=== PATIENT | male | born 1955 | race Caucasian/White ===

== ENCOUNTER → 2016-05-06 | Outpatient (CLI) | payer OTHER, MEDICAID | LOC: FCPNEURO 20:00 | PROVIDERS: ATTEND Psychiatry & Neurology Sleep Medicine | DX: G47.31 Primary central sleep apnea (principal); G47.33 Obstructive sleep apnea (adult) (pediatric) ==

== ENCOUNTER 2017-02-03 15:32 | Inpatient (IN) | payer OTHER, MEDICAID ==
[2017-02-03] MEDS ORDERED: OLANZapine DISINTEGR 5 MG TAB PO ONE ×2 (15:50→22:51)
--- NOTE | 2017-02-03 15:53 | EDPHY ---
H & P Source: Patient Exam Limitations: Clinical condition - Medical/Surgical History Other PMH: Psych - Social History Smoking Status: Former smoker Time Seen by Provider: 02/03/17 15:51 HPI/ROS: HPI: This is a 61-year-old male presents with Chief Complaint: M1 hold Location: psych Complaint: M1 hold Duration: Today Signs and Symptoms: Timing: Severity: Context: Patient is brought in by [facility] Police on M1 hold for the report of his suicidal person who voiced that he wanted to jump off a building in order to cause self-harm and end his life. While at the mental health public relations account supervisor he became agitated and very delusional and left the building. He was transported to this emergency room in handcuffs. During the interview, patient asked if we would not interrupt him during his thought process or while he was speaking. He relates to me that over the last 4 days he has been very manic, having obsessive-compulsive thoughts as well as being unable to calm his mind. He reports that he did not want to jump off the building to harm himself but said that ordered to "get some action." His dosage of lithium has recently been increased from 600-900 mg within the last 3 days. He reports a history of bipolar disorder, anxiety, obsessive-compulsive disorder and posttraumatic stress disorder. Modifying Factors: Comment: ROS: see HPI Constitutional: No fever, no chills, no weight loss Eyes: No blurred vision Respiratory: No shortness of breath, no cough Cardiovascular: No chest pain Gastrointestinal: No nausea, no vomiting, no diarrhea Genitourinary: No dysuria Extremities: No myalgias Neurologic: No weakness, no numbness Skin: No rashes Hematologic: No bruising, no bleeding MEDICAL/SURGICAL/SOCIAL HISTORY: Medical history: CVA in 1998 Surgical history: Denies Social history: Unemployed CONSTITUTIONAL: Adult tidy well-spoken white male, awake and alert, no obvious distress HEENT: Atraumatic and normocephalic, PERRL, EOMI. Tympanic membranes clear. Oropharynx clear, no exudate and moist pink mucosa. Airway patent. No lymphadenopathy. No meningismus. Cardiovascular: Normal S1/S2, regular rate, regular rhythm, without murmur rub or gallop. PULMONARY/CHEST: Symmetrical and nontender. Clear to auscultation bilaterally. Good air movement. No accessory muscle usage. ABDOMEN: Soft, nondistended, nontender, no rebound, no guarding, no peritoneal signs, no masses or organomegaly. No CVAT. EXTREMITIES: 2/2 pulses, no deformities, no clubbing, no cyanosis or edema. NEUROLOGICAL: no focal neuro deficits. GCS 15. SKIN: Warm and dry, no erythema. no rash. Good capillary refill. PSYCH: good eye contact, no flight of ideas, organized thought process, good insight and judgment, no auditory and visual command hallucinations, no suicidal ideation with a plan, no homicidal ideation, no paranoia (Gavin,Terra) Constitutional: Initial Vital Signs Temperature (C) 36.8 C 02/03/17 16:19 Heart Rate 90 02/03/17 16:19 Respiratory Rate 18 02/03/17 16:19 Blood Pressure 130/100 H 02/03/17 16:19 O2 Sat (%) 90 L 02/03/17 16:19 O2 Delivery Mode Room Air Allergies/Adverse Reactions: fluphenazine enanthate [From Prolixin] Allergy (Verified 04/02/14 15:18) fluphenazine HCl [From Prolixin] Allergy (Verified 04/02/14 15:18) haloperidol [From Haldol] Allergy (Verified 04/02/14 15:18) haloperidol lactate [From Haldol] Allergy (Verified 04/02/14 15:18) "all pain killers" Allergy (Uncoded 04/02/14 15:18) "don't do well on me" Home Medications: Medication Instructions Recorded ARIPiprazole [Abilify 5 mg (*)] 2.5 mg PO DAILY 02/04/17 Anastrozole [Arimidex 1 mg (*)] 1 mg PO Q7D 02/04/17 Aspirin [Aspirin 81mg (*)] 81 mg PO DAILY 02/04/17 LORazepam [Ativan (*)] 1 mg PO HS 02/04/17 Levothyroxine [Synthroid 125 mcg 125 mcg PO DAILY06 02/04/17 (*)] Lisinopril [Zestril 10 mg (*)] 10 mg PO DAILY 02/04/17 Findlay Carbonate [Findlay 900 mg PO HS 02/04/17 Carbonate Cap 300 mg (*)] Propranolol HCl [Inderal 20mg (*)] 20 mg PO DAILY 02/04/17 Thiothixene 4 mg PO HS 02/04/17 Medical Decision Making ED Course/Re-evaluation: Labs, UDS ordered 1600: Came on M1 hold. Originally ordered Zyprexa but patient states that he does better with Ativan. Patient is calm and cooperative at this time. UDS positive for marijuana and benzodiazepines. 1640: Reviewed labs and medically clear for mental health evaluation 1700: End of Shift. Signed over to Dr. Oseguera pending mental health evaluation. (Roma Alonso) The patient been evaluated by mental health and they are looking for placement. Patient has had 2 mg of Ativan still somewhat agitated. He is given a 3rd dose of Ativan before moving on to other medications 10:50 p.m. patient continues to be agitated and is escalating despite the 3 mg of Ativan. He is given Zyprexa orally (Tani Oseguera) I took over care of this patient at 7:00 a.m.. This patient is on an M1 hold for suicidal ideation. His plan was to jump off of a bridge. He has received Ativan and Zyprexa here in the emergency department. He is to be admitted to [address] [place] [address]. 11:20 a.m., patient transferred to [address] [place] [address] in stable condition. I filled out the appropriate transfer paperwork. His remaining emergency department course under my care has been uneventful. (Rubio Zamora) Differential Diagnosis: Altered mental status including but not limited to hypoglycemia, infectious process, electrolyte abnormality, head injury and intoxicants. (Roma Alonso) Care Turn Over: Care to Dr. Badillo at 11:00 p.m. (Tani Oseguera) - Data Points Laboratory Results: Laboratory Results 02/03/17 16:00 02/03/17 16:00 Medications Given: Amlodipine Besylate (Norvasc) 2.5 mg PO DAILY JUAN Stop: 08/04/17 08:59 Last Admin: 02/05/17 08:01 Dose: 2.5 mg Asenapine (Saphris) 10 mg SL BID JUAN Stop: 08/04/17 09:14 Last Admin: 02/05/17 11:13 Dose: 10 mg Aspirin (Aspirin) 81 mg PO DAILY JUAN Stop: 08/04/17 08:59 Last Admin: 02/05/17 08:02 Dose: 81 mg Levothyroxine Sodium (Synthroid) 125 mcg PO DAILY@1000 JUAN Stop: 08/04/17 09:59 Last Admin: 02/05/17 11:14 Dose: 125 mcg Findlay Carbonate (Findlay Carbonate) 900 mg PO HS JUAN Stop: 08/03/17 20:59 Last Admin: 02/04/17 20:32 Dose: 900 mg Melatonin (Melatonin) 3 - 6 mg PO HS PRN PRN Reason: Sleep/Insomnia Stop: 08/03/17 21:38 Last Admin: 02/04/17 22:00 Dose: 6 mg Olanzapine (Zyprexa Zydis) 10 mg PO Q6 PRN PRN Reason: Agitation Stop: 08/04/17 09:04 Last Admin: 02/05/17 11:14 Dose: 10 mg Discontinued Medications Haloperidol (Haldol) 10 mg PO ONCE ONE Stop: 02/04/17 21:46 Last Admin: 02/04/17 21:57 Dose: Not Given Lorazepam (Ativan) 1 mg PO EDNOW ONE Stop: 02/03/17 16:13 Last Admin: 02/03/17 16:18 Dose: 1 mg Lorazepam (Ativan) 1 mg PO EDNOW ONE Stop: 02/03/17 19:48 Last Admin: 02/03/17 20:11 Dose: 1 mg Lorazepam (Ativan) 1 mg PO EDNOW ONE Stop: 02/03/17 20:52 Last Admin: 02/03/17 20:56 Dose: 1 mg Lorazepam (Ativan) 1 mg PO EDNOW ONE Stop: 02/04/17 02:49 Last Admin: 02/04/17 02:50 Dose: 1 mg Lorazepam (Ativan) 1 mg PO EDNOW ONE Stop: 02/04/17 07:34 Last Admin: 02/04/17 07:36 Dose: 1 mg Lorazepam (Ativan) 1 mg PO EDNOW ONE Stop: 02/04/17 10:53 Last Admin: 02/04/17 11:03 Dose: 1 mg Lorazepam (Ativan) 1 - 2 mg PO Q6H PRN PRN Reason: AGITATION Stop: 02/05/17 13:11 Last Admin: 02/05/17 08:01 Dose: 2 mg Nicotine Polacrilex (Nicorette) 2 mg B EDNOW ONE Stop: 02/04/17 02:49 Last Admin: 02/04/17 02:50 Dose: 2 mg Olanzapine (Zyprexa Zydis) 5 mg PO EDNOW ONE Stop: 02/03/17 15:51 Last Admin: 02/03/17 16:18 Dose: Not Given Olanzapine (Zyprexa Zydis) 20 mg PO EDNOW ONE Stop: 02/03/17 22:52 Last Admin: 02/03/17 22:56 Dose: 20 mg Olanzapine (Zyprexa Im Injection) 5 mg IM BID JUAN Stop: 08/03/17 13:14 Last Admin: 02/04/17 15:25 Dose: Not Given Olanzapine (Zyprexa Zydis) 10 mg PO ONCE ONE Stop: 02/04/17 13:49 Last Admin: 02/04/17 13:50 Dose: 10 mg Olanzapine (Zyprexa Zydis) 10 mg PO BID JUAN Stop: 02/05/17 20:59 Last Admin: 02/05/17 08:01 Dose: 10 mg Olanzapine (Olanzapine) 5 mg PO ONCE ONE Stop: 02/04/17 22:01 Last Admin: 02/04/17 22:01 Dose: 5 mg Olanzapine (Olanzapine) 5 mg PO Q4H PRN PRN Reason: AGITATION Stop: 08/03/17 21:57 Last Admin: 02/05/17 01:05 Dose: 5 mg Olanzapine (Zyprexa Zydis) 10 mg PO ONCE ONE Stop: 02/05/17 15:31 Last Admin: 02/05/17 15:21 Dose: 10 mg Departure - Departure Disposition: [facility] IP Clinical Impression: Verbalizes suicidal thoughts Bipolar disorder Qualifiers: Active/Remission status: currently active Current bipolar episode type: manic Current episode severity: severe Psychotic features: without psychotic features Qualified Code(s): F31.13 - Bipolar disorder, current episode manic without psychotic features, severe
[2017-02-03 16:12] LABS: % IMMATURE GRANULYOCYTES 0.4 % (0.0-1.1); ABSOLUTE IMMATURE GRANULOCYTES 0.04 10^3/uL (0.00-0.10); ADD DIFF? NO; ADD MORPH? NO; ADD SCAN? NO; ATYPICAL LYMPHOCYTE FLAG 10 (0-99); FRAGMENT RBC FLAG 0 (0-99); HEMATOCRIT 45.7 % (40.0-51.0); HEMOGLOBIN 15.5 g/dL (13.7-17.5); LEFT SHIFT FLG 0 (0-99); LIPEMIA HEMOLYSIS FLAG 90 (0-99); MEAN CELL HEMOGLOBIN CONCENTR. 33.9 g/dL (32.4-36.7); MEAN CELL VOLUME 88.6 fL (81.5-99.8); PLATELET CLUMPS FLAG 0 (0-99); PLATELET COUNT 181 10^3/uL (150-400); RED BLOOD CELL COUNT 5.16 10^6/uL (4.40-6.38); RED CELL DISTRIBUTION WIDTH 12.8 % (11.5-15.2)
[2017-02-03] MEDS ORDERED: LORazepam 1 MG TAB ONE ×2 (16:12→19:48)
[2017-02-03] MEDS ORDERED: LORazepam 1 MG TAB PO ONE ×3 (16:12→20:51)
[2017-02-03 16:42] LABS: ANION GAP 9 mEq/L (8-16); CALCIUM 11.3 mg/dL (8.5-10.4); CARBON DIOXIDE 20 mEq/l (22-31); CHLORIDE 106 mEq/L (97-110); CREATININE 1.2 mg/dL (0.7-1.3); ETHANOL SERUM < 10 mg/dL (0-10); GLOMERULAR FILTRATION RATE > 60; GLUCOSE 107 mg/dL (70-100); LITHIUM 0.4 mEq/L (0.6-1.2); POTASSIUM 4.2 mEq/L (3.5-5.2); SALICYLATE < 1.0 mg/dL (2.0-20.0); SODIUM 135 mEq/L (134-144)
[2017-02-04] MEDS ORDERED: NICOTINE POLACRILEX 2 MG GUM B ONE ×2 (02:44→02:48)
[2017-02-04] MEDS ORDERED: LORazepam 1 MG TAB ONE (02:45)
[2017-02-04] MEDS ORDERED: LORazepam 1 MG TAB PO ONE ×3 (02:48→10:52)
[2017-02-04] MEDS ORDERED: ACETAMINOPHEN 325 MG TAB PO PRN (12:41)
[2017-02-04] MEDS ORDERED: MAG HYDROX/AL HYDROX/SIMETH 30 ML UDCUP PO PRN (12:41)
[2017-02-04] MEDS ORDERED: MAGNESIUM HYDROXIDE 30 ML UDCUP PO PRN (12:41)
[2017-02-04] MEDS ORDERED: LORazepam 2 MG/ML INJ IM PRN (13:13)
[2017-02-04] MEDS ORDERED: OLANZapine 10 MG/2 ML VIAL IM SCH (13:15)
[2017-02-04] MEDS ORDERED: OLANZapine 10 MG TAB PO SCH (13:15)
[2017-02-04] MEDS ORDERED: OLANZapine 10 MG/2 ML VIAL IM PRN (13:30)
--- NOTE | 2017-02-04 13:45 | SOAPPROG ---
SOAP Progress Note Assessment/Plan: Assessment: See dictated psychiatric admission note Patient was combative with police earlier and menacing to ER staff. On inpatient unit today screaming profanity, threw food, punched wall, and menacing staff with clenched fist. Patient appears gravely disabled from agitated randi, also had suicidal threats in community. Patient on assault awareness and SPI suicide precaution. EMED DAY ONE Olanzapine ODT 10mg SL BID, if refused: Olanzapine 5mg IM BID PRN Lorazepam 1-2mg Q6 PRN agitation, if refused Lorazepam 2mg IM Will also offer [place] 900mg QHS and Synthroid Plan: 02/04/17 13:42 Objective: Vital Signs Temp Pulse Resp BP Pulse Ox 36.8 C 88 18 148/72 H 96 02/04/17 11:22 02/04/17 11:22 02/04/17 11:22 02/04/17 11:22 02/04/17 11:22 See dictated psychiatric admission note - Time Spent With Patient Time Spent With Patient: 35 - Pending Discharge Pending Discharge Within 24 Hours: No Pending Discharge Within 48 Hours: No ICD10 Worksheet Patient Problems: Problems Problem Status Onset Bipolar disorder Acute Verbalizes suicidal thoughts Acute
[2017-02-04] MEDS ORDERED: OLANZapine DISINTEGR 10 MG TAB PO ONE (13:48)
[2017-02-04] MEDS ORDERED: OLANZapine DISINTEGR 10 MG TAB ONE (13:49)
[2017-02-04] MEDS ORDERED: OLANZapine DISINTEGR 10 MG TAB PO SCH (14:00)
--- NOTE | 2017-02-04 14:46 | BAPA ---
[f rep st] ADMISSION PSYCHIATRIC ASSESSMENT IDENTIFICATION: This is a 61-year-old single white male who lives alone. He receives social security disability for mental illness. 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 CHIEF COMPLAINT: "It's very hard to describe, but I am highly revered. I am good at my job. I am the doctor and I'll tell you what to do." HISTORY OF PRESENT ILLNESS: Patient is a poor historian with tangential thinking and disorganized thinking and behavior. The patient reports that he had not slept in 2 weeks and went to the walk-in clinic. He was then transported to the emergency department by police after reportedly appearing agitated and reporting suicidal thoughts. The patient describes not sleeping for 2 weeks, having mood swings. He has grandiose beliefs, that he is a doctor and that he is saving the world. He also reports problems with his job at [employer]. Says that they are making him speak "Thai," but is unable to explain further. The patient endorses the fact that he made suicidal statements about jumping off a bridge prior to the emergency room evaluation, but denies feeling suicidal currently. He denies violent thoughts, but during the interview, the patient was violent and he was throwing food from the cafeteria. He was also hitting the wall, slamming the doors, and menacing this doctor with a clenched fist. The patient denies any specific physical complaints. He denies paranoia. He later endorses auditory hallucinations of a voice calling his name or hearing his father's voice. He is unable to explain how often this happens. He denies specific thoughts to hurt others currently. However, the notes in the emergency department indicate that the patient was manic, loud, yelling, disruptive, intrusive, and menacing to staff, and the patient was given multiple doses (5mg total) of lorazepam as well as 20 mg of Zyprexa to calm down. PAST PSYCHIATRIC HISTORY: The patient reports between ages of 17 and 36, having 10 psychiatric hospitalizations for bipolar disorder. He reports 2 of them were for depression and suicidal thinking and the other 8 were for manic behaviors. He reports that he is in outpatient treatment at [facility]. He is unable to explain his medication regimen, but after review of notes, the patient endorses taking lithium. He is unable to explain the dose. He endorses taking Synthroid as well. He is unable to explain his other medications. The patient reports in the past, around age 17, he had an overdose of Valium. He denies other suicide attempts. He denies any history of violent crimes or arrests. Notes from the chart indicate patient had past benefit from El Veintiseis, Depakote, and Zyprexa but gained weight on these medications and had borderline type II diabetes; patient had no benefit of side effects from Lamictal, Geodon, and Latuda. He has listed allergy to Prolixin and Haldol - patient reports restlessness and stiffness from these medications. Notes indicate patient was also prescribed Abilify and Navane in the past. SOCIAL HISTORY: The patient reports he was raised by his biological parents in a [place] family in the [facility] area. He reported he and his siblings relocated out to [place] at a later time. He reports that he has 4 siblings in [place]. He reports he has never been , never had children. Was never in the . He reports he graduated from high school. He has been on social security disability for mental illness for many years. 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 Denies any history of trauma. FAMILY HISTORY: He reports that he has a sister with obsessive-compulsive disorder. He also reports he feels that several of his siblings have narcissistic personality disorder. He is unable to explain further. SUBSTANCE ABUSE HISTORY: The patient reports he smokes marijuana daily. He denies alcohol, stimulant, or opiate abuse. He denies past substance abuse treatment. ALLERGIES: Patient reports extrapyramidal symptoms such as stiffness or restlessness from Haldol and Prolixin. He also reports itching from Vicodin. MEDICAL HISTORY: The patient reports possibly having a stroke in 1998. He is unable to describe this further. He denies traumatic brain injury or seizures. He reports taking thyroid medication 125 mcg of Synthroid a day. He denies taking any other medications at this time. Notes indicate patient may be prescribed Aspirin and Lisinopril but patient denies taking these medications. MEDICATIONS: The patient is a poor historian. Has difficulty explaining his recent medications. He does report taking lithium and Synthroid recently. Probably Synthroid 0.125 mcg daily. There is conflicting information in the chart regarding the patients medication regimen. It is unclear if he has been taking Abilify, Navane, or not. It is unclear what dose of lithium he was taking. It is also unclear what medical medications he was taking. OBJECTIVE: VITAL SIGNS: Blood pressure 148/72, heart rate 88, respiratory rate 18, pulse ox 96%. Temperature is afebrile. LABS: White blood cell count 9.5, hemoglobin 15.5, platelet 181. Sodium 135, creatinine 1.2, glucose 107, calcium 11.3, phosphorus 3.6. TSH 1.2. Urine tox screen was positive for marijuana and benzodiazepines. He also had a lithium level of 0.4. His alcohol level was negative. MENTAL STATUS EXAM: He is an alert, white male with a sher march. He is ambulatory. He has a [employer] football [place] on backwards. He has mild ataxia with ambulation. His speech is slightly slurred. His speech is loud with yelling at times. He has impulsive behavior including throwing food in the cafeteria. He also slams doors, punches ignacio, and yells profanity at this physician, and stands over this physician with clenched fists. Poor historian withe reduced memory of recent events, poor insight, and impaired judgment. The patient was escorted down the [place]sey by the security vehicle patrol officer. The patient currently denies suicidal or homicidal thoughts. However, the emergency department reports that the patient was taken to the emergency room on an M1 hold for making suicidal statements about jumping off a bridge. The patient endorsed auditory hallucinations of a voice, but had difficulty describing. The patient appears paranoid in the hospital. Psychomotor: The patient has ataxia but no focal weakness. Memory: Unable to do formal memory testing as the patient is belligerent, unable to cooperate with testing. The patient's thought content includes grandiose delusions. He has poor insight and impaired judgment and appears very impulsive. ASSESSMENT: Bipolar disorder type 1, most recent episode manic, severe, with mixed features and psychotic features. Cannabis use disorder. Also, history of hypothyroidism, history of cerebrovascular disease, history of borderline type 2 diabetes, history of hypertension, hypercalcemia; history of borderline sleep apnea The overall assessment of this patient is that he appears manic and volatile with rapid and loud speech, impulsive behavior, grandiose delusions, and reckless behaviors. He has also had a labile affect where he was suicidal when he was brought to the emergency room. Now, he appears grandiose and agitated. PLAN OF TREATMENT: 1. We will try to obtain the patient's actual medication list from [facility], as there is conflicting information and multiple notes from the emergency department regarding his psychiatric medication regimen. 2. We will continue the Synthroid per the dose on the emergency department report that the patient confirmed. It is unclear if the patient has thyroid disease separate from his lithium use or not. 3. We will offer lithium 900 mg by mouth at bedtime tonight. The patient's lithium level was low in the emergency department. 4. We will schedule olanzapine oral dissolving tablet (Zydis) 10 mg twice a day as an emergency medication today due to the severe agitation that the patient is having. If the patient refuses, he will get an olanzapine intramuscular injection of 5 mg. 5. We will offer lorazepam either 1 or 2 mg p.o. q.6 hours p.r.n. for severe agitation and if refused, intramuscular Ativan 1 mg or 2 mg. 6. I will monitor the patient's blood pressure on the unit prior to restarting antihypertensive medications. Of note, the patient had a sodium level of 135 so is at risk of hyponatremia with an JEANNETTE inhibitor, so we will not order lisinopril at this time, which was one of the medications on the emergency department report. The patient will receive a hospitalist evaluation to clarify if he should be on medications for blood pressure or not. 7. The patient was not cooperative with attempts to get the patient to sign a release of information to his siblings. The patient reports living independently with social security benefits and having 4 siblings in the area, but the patient would not sign a consent at this time. 8. The patient apparently has a case management director at [facility]. Will outreach and try to get a hold of her. Her name is Nyla Sosa. 9. The patient is currently on an mental health hold dated February 03 at 7 :30 p.m. The patient is currently in the hospital involuntarily. Will likely file a short-term certification tomorrow. 10. Safety precautions. The patient will be on assault awareness, as he apparently was combative with police. 11. The patient will be on suicide precautions due to making a suicidal statement prior to admission. /[id number]/MODL MTDD
[2017-02-04] MEDS: OLANZapine DISINTEGR 10 MG TAB PO SCH (20:32)
[2017-02-04] MEDS: LITHIUM CARBONATE 300 MG CAP PO SCH (20:32)
[2017-02-04] MEDS ORDERED: LORazepam 1 MG TAB PO SCH (21:00)
[2017-02-04] MEDS ORDERED: HALOPERIDOL LACT 5 MG/ML INJ IM PRN (21:38)
[2017-02-04] MEDS ORDERED: HALOPERIDOL 5 MG TAB PO PRN (21:40)
[2017-02-04] MEDS ORDERED: HALOPERIDOL 5 MG TAB PO ONE (21:45)
[2017-02-04] MEDS ORDERED: OLANZapine 5 MG TAB PO PRN (21:58)
[2017-02-04] MEDS: MELATONIN 3 MG TAB PO PRN (22:00)
[2017-02-04] MEDS ORDERED: OLANZapine 5 MG TAB PO ONE (22:00)
--- NOTE | 2017-02-04 22:09 | BCON ---
[f rep st] BEHAVIORAL HEALTH CONSULTATION INTERNAL MEDICINE CONSULTATION DATE OF CONSULTATION: 02/04/2017 REFERRING PHYSICIAN: Torrey Dorado MD REASON FOR REFERRAL: Medical clearance for inpatient behavioral health stay. HISTORY OF PRESENT ILLNESS: This patient was admitted through the emergency department where he was brought in by police on an M1 hold with suicidal ideation. He had been at a mental health clinic and stated that he wanted to jump off a building. He was brought to the emergency department in handcuffs. He was evaluated by the mental health team and admitted for further psychiatric care. He has since been agitated and threatening during evaluation by the psychiatrist, but has subsequently taken olanzapine and is more calm. He currently is without any acute medical complaints. PAST MEDICAL HISTORY: 1. Mental health issues with diagnosis of bipolar disorder. 2. Cerebrovascular accident in 1998. 3. Obstructive sleep apnea. 4. First-degree AV block. 5. Plantar fasciitis. 6. Renal insufficiency. 7. Hypertension. PAST SURGICAL HISTORY: He has had a nasal septoplasty. MEDICATIONS: Prior to admission 1. Lisinopril 10 mg p.o. daily. 2. Levothyroxine 125 mcg p.o. daily. 3. Aspirin 81 mg daily. 4. Anastrozole 1 mg p.o. q.7 days. 5. Aripiprazole 2.5 mg p.o. daily. 6. Propranolol 20 mg p.o. daily. 7. Lorazepam 1 mg p.o. at bedtime. 8. Thiothixene 4 mg p.o. at bedtime. 9. [place] 900 mg p.o. at bedtime. ALLERGIES: First generation antipsychotics including fluphenazine and haloperidol. FAMILY HISTORY: Noncontributory. SOCIAL HISTORY: He lives by himself. He has social security disability income. 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 He has a history of smoking but is a nonsmoker. He reports to me that he drinks 2 beers a day. REVIEW OF SYSTEMS: He reports he has loss of sensation on his left lower face and that this is chronic. He denies cough, dyspnea, fevers, chills, weight change, nausea, vomiting, constipation, or diarrhea, urinary frequency or dysuria. Otherwise, a 10-point review of systems are negative. PHYSICAL EXAMINATION: VITAL SIGNS: Blood pressure is 144/97. Heart rate is 67. Respiratory rate is 12. Oxygen saturation is 99% on room air. Temperature is 36.4 degrees centigrade. His weight is 84.4 kg for a body mass index of 28.3. GENERAL: This is an overweight man, mildly agitated, cooperates with the exam. In no acute distress. HEENT: Extraocular movements are intact. Pupils are equal, round, reactive to light. Mucous membranes are moist. He has a crowded airway, Mallampati class III. Dentition is in good condition. NECK: Supple. HEART: There is a regular rate and rhythm with no murmurs, rubs or gallops. LUNGS: Clear to auscultation bilaterally. ABDOMEN: Soft, nontender, nondistended with normoactive bowel sounds. EXTREMITIES: There is no cyanosis, clubbing or edema. NEUROLOGIC: He is alert and oriented x3. Cranial nerves 2-12 are grossly intact but for a left facial droop and lack of sensation to light palpation over the left lower cheek. There is no focal weakness. Sensation is intact to light touch. Gait is within normal limits. LABORATORY STUDIES: Drawn in the emergency department: CBC was overall within normal limits but for a minor elevation of white blood cells at 9.59, which was predominantly neutrophils with an absolute neutrophil count of 6.8. Serum chemistry revealed overall normal renal function and electrolytes. BUN was slightly elevated at 24. Carbon dioxide was slightly low at 20. GFR was estimated at greater than 60. Blood sugar was slightly high at 107, but this was likely not fasting. Calcium was high at 11.3. TSH was normal at 1.22. Toxicology screen in the serum was negative for salicylates, acetaminophen or ethyl alcohol. He had a subtherapeutic lithium level at 0.4. Toxicology screen in the urine was non-negative for benzodiazepines and marijuana. Further review of prior labs reveals an evaluation for parathyroid hormone function with an elevated PTH at 89.9 with the upper limit of normal being 79.4 with a high calcium at the same time at 10.4 and initially a high phosphorus at 4.9. Subsequently, phosphorus normalized. Additionally, he has dyslipidemia. On 10/03/2016, his cholesterol was 204. LDL was elevated at 122 with a non HDL of 138. His HDL was 66. Vitamin D level was checked and was low on 07/11/2016, at 27.9 and was normal at on 10/03/2016, at 30.5. On 07/11/2016, and 10/03/2016, he had renal insufficiency with creatinine of 1.5 and 1.6, respectively. GFR estimated at 48 and 44. ASSESSMENT/RECOMMENDATIONS: 1. Mental health issues. Pending further evaluation and management per Psychiatry and the mental health team. 2. Hypertension. Lisinopril was an appropriate choice given history of renal insufficiency, though there is no record of urine testing regarding possible proteinuria. He does not have diabetes. Per Psychiatry's note, there is concern regarding risk for hyponatremia. Would advise some caution regarding lithium dosing with history of renal insufficiency. Given these considerations , will initiate amlodipine at 2.5 mg p.o. daily and advised serial monitoring of blood pressure. Will follow along and adjust amlodipine if his blood pressure continues to be high. 3. Left facial droop with likely history of cerebrovascular accident. Given the sensory component, this is unlikely to be a Mcintyre's palsy and supports the diagnosis of prior cerebrovascular accident. He needs blood pressure control and to continue aspirin, which has been ordered. 4. Dyslipidemia with an elevated LDL. He also has an elevated HDL. His cardiovascular risk per the ACC/AHA cardiovascular risk calculator is 10.3% in 10 years. He meets criteria for a moderate to high intensity statin. If he is to be compliant with medications, advised consideration of initiating atorvastatin at 40 mg daily. 5. History of obstructive sleep apnea as well as central sleep apnea. Reviewed sleep study from 05/06/2016. Recommendation at that time was to consider nocturnal oxygenation. His obstructive sleep apnea seems to have largely responded to the nasal septoplasty that he went underwent. 6. Treatment with anastrozole. Again reviewing the records, there was a series of lab tests regarding testosterone level by urologist, Dr. Weaver. He had an elevated testosterone. The patient reports to me that he was using anabolic steroids at the time and began the anastrozole "to prevent growing man boobs." Unclear whether anastrozole is indicated at present. It has not been ordered and I think that is appropriate. I see no medical contraindications to the patient's continued stay on the inpatient behavioral health unit or to any psychiatric medications or procedures. Thank you very much for including me in the care of the patient. Please do not hesitate to contact me or the hospitalist service should there be need for further medical evaluation. /[id number]/MODL MTDD
[2017-02-04 22:36] LABS: ALANINE AMINOTRANSFERASE 60 IU/L (21-72); ASPARTATE AMINOTRANSFERASE 41 IU/L (17-59)
[2017-02-05] MEDS: LORazepam 1 MG TAB PO PRN ×2 (01:04→08:01)
[2017-02-05] MEDS ORDERED: LEVOTHYROXINE 125 MCG TAB PO SCH (06:00)
[2017-02-05] MEDS: OLANZapine DISINTEGR 10 MG TAB PO SCH (08:01)
[2017-02-05] MEDS: ASPIRIN 81 MG CHEWABLE TAB PO SCH (08:02)
[2017-02-05] MEDS ORDERED: amLODIPine BESYLATE 5 MG TAB PO SCH (09:00)
[2017-02-05] MEDS ORDERED: OLANZapine 10 MG/2 ML VIAL IM PRN (09:06)
--- NOTE | 2017-02-05 09:12 | SOAPPROG ---
SOAP Progress Note Assessment/Plan: Assessment: Bipolar I Manic severe with mixed and psychotic features Cannabis Use Disorder Recent suicidal ideation History of borderline type II diabetes, hypertension, sleep apnea, possible small vessel CVA per records Patient had manic symptoms and reported suicidal thoughts prior to admission; was having manic symptoms and severe agitation and reportedly received >5mg Lorazepam, >30 mg of Olanzapine yesterday Patient threw phone, has been menacing staff with profanity and clenched fists this AM. Plan: EMED DAY 2 Offer Saphris 10mg PO BID, if refused Olanzapine 5mg IM Olanzapine Zydis 10mg SL Q6 hours PRN agitation, if refused Olanzapine 5mg IM Lorazepam 1-2mg PO Q6 PRN anxiety, if refused IM Lorazepam 2mg Monitor behavior, impulse control, thought organization, grandiosity, irritability. Try to obtain CAREY from patient for [facility] and family Continue [place] 900mg. If compliant check [place] level, Ca++, BMP in 2-3 days ASA, amlodipine for history of HTN and borderline DM and possible small vessel CVA 02/05/17 09:12 Subjective: "They are trying to put me down, they are tyrants, I own this place and I will tell you what to do" Patient is a poor historian with rambling speech and inappropriate yelling profanity, impulsively throwing phone and walking away from M.D. Reports sleeping 2 hours. Agrees that he is manic but then reports he doesn't want treatment or medications. Denies stiffness or tremors or feeling sedated. Refuses to discuss symptoms prior to admission and behavior on unit. Objective: Vital Signs Temp Pulse Resp BP Pulse Ox 36.4 C 75 18 141/89 H 97 02/04/17 22:22 02/04/17 22:22 02/04/17 22:22 02/04/17 22:22 02/04/17 22:22 Ambulatory WM, disheveled, yelling, thoughts tangential and disorganized. Denies SI or HI but throws phone. Grandiose delusions. Poor insight. Agitated. LFTS WNL Internal Medicine ordered Amlodipine 2.5mg PO QAM for history of HTN - Time Spent With Patient Time Spent With Patient: 20 min - Pending Discharge Pending Discharge Within 24 Hours: No Pending Discharge Within 48 Hours: No ICD10 Worksheet Patient Problems: Problems Problem Status Onset Bipolar disorder Acute Verbalizes suicidal thoughts Acute
[2017-02-05] MEDS: ASENAPINE MALEATE 10 MG SUBLINGUAL TAB SL SCH ×2 (11:13→18:10)
[2017-02-05] MEDS: LEVOTHYROXINE 125 MCG TAB PO SCH (11:14)
[2017-02-05] MEDS: OLANZapine DISINTEGR 10 MG TAB PO PRN ×3 (11:14→19:44)
[2017-02-05] MEDS ORDERED: LORazepam 1 MG TAB PO PRN (15:25)
[2017-02-05] MEDS ORDERED: OLANZapine DISINTEGR 10 MG TAB PO ONE (15:30)
[2017-02-05] MEDS: LITHIUM CARBONATE 300 MG CAP PO SCH (18:10)
[2017-02-06] MEDS: OLANZapine DISINTEGR 10 MG TAB PO PRN (04:34)
[2017-02-06] MEDS ORDERED: RISPERIDONE 2 MG ODT TAB SL PRN (08:08)
[2017-02-06] MEDS ORDERED: OLANZapine 10 MG/2 ML VIAL IM PRN (08:09)
[2017-02-06] MEDS ORDERED: LORazepam 2 MG/ML INJ IM PRN (08:09)
[2017-02-06] MEDS: LEVOTHYROXINE 125 MCG TAB PO SCH (08:27)
[2017-02-06] MEDS: ASPIRIN 81 MG CHEWABLE TAB PO SCH (08:27)
[2017-02-06] MEDS: OLANZapine DISINTEGR 10 MG TAB PO SCH ×3 (08:27→20:57)
[2017-02-06] MEDS: PROPRANOLOL HCL 10 MG TAB PO SCH ×2 (08:27→20:57)
[2017-02-06] MEDS: LORazepam 1 MG TAB PO SCH ×3 (08:27→21:00)
--- NOTE | 2017-02-06 08:34 | SOAPPROG ---
SOAP Progress Note Assessment/Plan: Assessment: Bipolar I Manic severe with mixed and psychotic features Cannabis Use Disorder Possible Alcohol Use Disorder and possible alcohol withdrawal (mild HTN, mild tremor, severe agitation and insomnia) Recent suicidal ideation, recent violent ideation, recent seclusions History of borderline type II diabetes, hypertension, sleep apnea, possible small vessel CVA per records Hypothyroidism and Hypercalcemia, probably secondary to [place] Possible rapid metabolizer Patient had manic symptoms and violent and suicidal threats over past 24 hours and was in seclusion twice in past 24 hours due to menacing staff with clenched fists. Patient currently on short term certification Plan: Patient signed CAREY for [facility]. Left message for nurse of Dr. Marshall requesting call back to review patients treatment plan. Continue ASA Discontinue Amlodipine. Restart Propranolol 10mg BID. Vital signs Qshift with pulse ox. Change [place] 300mg PO TID. Check level in AM with CMP Start Thiamine 100mg and folic acid 1mg EMED DAY 3 Lorazepam 2mg PO TID for agitation and possible alcohol withdrawal, if refused Lorazepam 2mg IM Olanzapine ODT 10mg TID for bipolar disorder, if refused Olanzapine 10mg IM Will also offer Risperdal Mtab 2mg Q6 hours PRN agitation if not improving with scheduled TID Olanzapine/Lorazepam Discontinue Saphris (ineffective) 02/06/17 08:34 Subjective: "Are they trying to poison me" "That form I signed will be worth $2 million on [employer] next year" Patient is a poor historian. With structured questioning reports taking [place] 900mg and Propranolol 20mg daily prior to admission as well as 2mg of Abilify and Navane, unsure of dose. Endorses feeling irritable and agitated. Denies violent thoughts this morning but endorses making violent threats toward staff yesterday. Reports drinking 2-3 drinks prior to admit along with using cannabis. Denies AH. Denies feeling stiff or restless or weak or sedated. Spoke to brother Richard [phone] (patient signed CAREY). He reports patient drinking 3-4 drinks and smoking cannabis daily prior to admit, was getting more irritable and agitated over past month without clear stressor. Objective: Vital Signs Temp Pulse Resp BP Pulse Ox 37.0 C 94 14 152/94 H 98 02/06/17 00:30 02/06/17 00:30 10/20/17 00:30 02/06/17 00:30 02/06/17 00:30 Alert WM, pacing. No focal weakness. Trace tremor with extension of hands. Speech loud, brief yelling. Thoughts tangential with loose associations. Grandiose delusions. Paranoia about treatment team. Denies SI or HI. Denies AH. Memory intact to major events but poor detail. Poor insight. Impaired judgment. Staff report patient in seclusion twice yesterday. Patient was screaming profanity at staff, threatening to kill staff with clenched fists. - Time Spent With Patient Time Spent With Patient: 35 - Pending Discharge Pending Discharge Within 24 Hours: No Pending Discharge Within 48 Hours: No ICD10 Worksheet Patient Problems: Problems Problem Status Onset Bipolar disorder Acute Verbalizes suicidal thoughts Acute
[2017-02-06] MEDS: LITHIUM CARBONATE 300 MG CAP PO SCH ×3 (11:35→21:01)
[2017-02-06] MEDS: FOLIC ACID 1 MG TAB PO SCH (20:57)
[2017-02-06] MEDS: THIAMINE HCL 100 MG TAB PO SCH (20:57)
[2017-02-07] MEDS: MELATONIN 3 MG TAB PO PRN (03:58)
[2017-02-07] MEDS: NICOTINE POLACRILEX 2 MG GUM B PRN ×3 (05:52→09:30)
[2017-02-07] MEDS: LITHIUM CARBONATE 300 MG CAP PO SCH ×3 (08:03→20:23)
[2017-02-07] MEDS: LORazepam 1 MG TAB PO SCH ×3 (08:03→20:22)
[2017-02-07] MEDS: ASPIRIN 81 MG CHEWABLE TAB PO SCH (08:03)
[2017-02-07] MEDS: OLANZapine DISINTEGR 10 MG TAB PO SCH ×3 (08:04→19:20)
[2017-02-07] MEDS: PROPRANOLOL HCL 10 MG TAB PO SCH ×2 (08:04→20:22)
[2017-02-07] MEDS: LEVOTHYROXINE 125 MCG TAB PO SCH (08:04)
[2017-02-07 09:02] LABS: ALANINE AMINOTRANSFERASE 53 IU/L (21-72); ALBUMIN 4.5 g/dL (3.5-5.0); ALKALINE PHOSPHATASE 44 IU/L (38-126); ANION GAP 15 mEq/L (8-16); ASPARTATE AMINOTRANSFERASE 28 IU/L (17-59); BILIRUBIN,TOTAL 0.7 mg/dL (0.1-1.4); CALCIUM 10.9 mg/dL (8.5-10.4); CARBON DIOXIDE 22 mEq/l (22-31); CHLORIDE 107 mEq/L (97-110); CREATININE 1.2 mg/dL (0.7-1.3); GLOMERULAR FILTRATION RATE > 60; GLUCOSE 114 mg/dL (70-100); SODIUM 144 mEq/L (134-144); TOTAL PROTEIN 7.1 g/dL (6.3-8.2)
[2017-02-07 09:09] LABS: LITHIUM 0.9 mEq/L (0.6-1.2)
[2017-02-07] MEDS: THIAMINE HCL 100 MG TAB PO SCH (20:22)
[2017-02-07] MEDS: FOLIC ACID 1 MG TAB PO SCH (20:23)
--- NOTE | 2017-02-07 21:30 | SOAPPROG ---
SOAP Progress Note Assessment/Plan: Assessment: 61yo CM with BMD currently manic, severe with psychotic features, also Cannabis Use Disorder and r/o Alcohol Use D/O admitted On ST, compliant with meds, out of seclusion >24hr (had been threatening / menacing) and now taking meds voluntarily, with gradual improvement clinically altho still with occasional outburst and irritability but more redirectable. Medically with borderline type II diabetes, hypertension, sleep apnea, possible small vessel CVA per records, and Hypothyroidism and Hypercalcemia, probably secondary to [place], and possible rapid metabolizer 02/07/17 11:30 Subjective: Per staff, pt slept has been irritable but more redirectible Reports eating well, sleeping through most of night. did receive melatonin around 3am Had 3 days Emeds through yesterday, on interview today, agrees to continue taking meds as Rxd, reports no med s/e, and feels Zyprexa is like magic how well it works. Talked of abilify/navane helpful as well but not nearly as much as zyprexa which caused weight gain- "I'll take it while I'm in here, but not after I leave...but its genius!". Abilify/Navane he feels off=set each other, Navane giving a heavy feeling in his head, and Abilify causing incr activity. Denied s/e to Zyprexa 10mg TID with Ativan 2mg tid at this time. MSE: Edentulous, nml speech rate and vol, maintained control behaviorally throughout interview, engaging, denied current SI/HI and denied any AH/VH, but asking if I thought pretty girls would be interested in him, and expressing some grandiose thoughts. No resting or intention tremor noted BUE, no ataxia or physical unsteadiness noted, and no evid of other EPS PLAN: [place] level 0.9 Cont current psychotropic meds as ordered, [place] 300mg PO TID, Ativan 2mg PO TID, Zyprexa ODT 10mg TID and Risperdal 2mg prn (has not been using) Allowed Emeds to this AM b/c clinically not meeting criteria for continuation, but given his hx, will have low threshold for reinstating, including if pt begins refusing meds. STC continued, [facility] f/u after d/c as before Cont other meds as ordered: ASA, recent restart of Propranolol 10mg BID. cont to follow VS Qshift with pulse ox. Has hx of [place], and borderline HTN and borderline DM. Also monitoring for any evid of EtOH w/d. On Thiamine, folate. Objective: Vital Signs Temp Pulse Resp BP Pulse Ox 36.7 C 78 16 135/88 H 96 02/07/17 16:32 02/07/17 20:22 02/07/17 16:32 02/07/17 20:22 02/07/17 16:32 Laboratory Results 02/07/17 04:00 - Time Spent With Patient Time Spent With Patient: 25min - Pending Discharge Pending Discharge Within 24 Hours: No Pending Discharge Within 48 Hours: No ICD10 Worksheet Patient Problems: Problems Problem Status Onset Bipolar disorder Acute Verbalizes suicidal thoughts Acute
[2017-02-08] MEDS: OLANZapine DISINTEGR 10 MG TAB PO SCH ×3 (08:01→20:57)
[2017-02-08] MEDS: LITHIUM CARBONATE 300 MG CAP PO SCH ×3 (08:01→20:58)
[2017-02-08] MEDS: PROPRANOLOL HCL 10 MG TAB PO SCH ×2 (08:01→20:57)
[2017-02-08] MEDS: LORazepam 1 MG TAB PO SCH ×3 (08:01→20:57)
[2017-02-08] MEDS: ASPIRIN 81 MG CHEWABLE TAB PO SCH (08:02)
[2017-02-08] MEDS: LEVOTHYROXINE 125 MCG TAB PO SCH (09:23)
[2017-02-08] MEDS: FOLIC ACID 1 MG TAB PO SCH (20:57)
[2017-02-08] MEDS: THIAMINE HCL 100 MG TAB PO SCH (20:57)
--- NOTE | 2017-02-08 21:32 | SOAPPROG ---
SOAP Progress Note Assessment/Plan: Assessment: 61yo CM with BMD currently manic, severe with psychotic features, also Cannabis Use Disorder and r/o Alcohol Use D/O admitted On STC, compliant with meds, out of seclusion >24hr (had been threatening / menacing) and now taking meds voluntarily, with gradual improvement clinically altho still with occasional outburst and irritability but more redirectable. Medically with borderline type II diabetes, hypertension, sleep apnea, possible small vessel CVA per records, and Hypothyroidism and Hypercalcemia, probably secondary to [place], and possible rapid metabolizer 02/07/17 11:30 Subjective: Per staff, pt slept has been irritable but more redirectible Reports eating well, sleeping through most of night. did receive melatonin around 3am Had 3 days Emeds through yesterday, on interview today, agrees to continue taking meds as Rxd, reports no med s/e, and feels Zyprexa is like magic how well it works. Talked of abilify/navane helpful as well but not nearly as much as zyprexa which caused weight gain- "I'll take it while I'm in here, but not after I leave...but its genius!". Abilify/Navane he feels off=set each other, Navane giving a heavy feeling in his head, and Abilify causing incr activity. Denied s/e to Zyprexa 10mg TID with Ativan 2mg tid at this time. MSE: Edentulous, nml speech rate and vol, maintained control behaviorally throughout interview, engaging, denied current SI/HI and denied any AH/VH, but asking if I thought pretty girls would be interested in him, and expressing some grandiose thoughts. No resting or intention tremor noted BUE, no ataxia or physical unsteadiness noted, and no evid of other EPS PLAN: [place] level 0.9 Cont current psychotropic meds as ordered, [place] 300mg PO TID, Ativan 2mg PO TID, Zyprexa ODT 10mg TID and prns Allowed Emeds to this AM b/c clinically not meeting criteria for continuation, but given his hx, will have low threshold for reinstating, including if pt begins refusing meds. STC continued, [facility] f/u after d/c as before Cont other meds as ordered: ASA, recent restart of Propranolol 10mg BID. cont to follow VS Qshift with pulse ox. Has hx of [place], and borderline HTN and borderline DM. Also monitoring for any evid of EtOH w/d. On Thiamine, folate. 02/08/17 13:39 per staff, slept 8.5hr. still requiring redirection around outbursts of name calling or insulting, but reported as "more pleasant on evening shift", has been med compliant. family supportive and visiting over w/e. pt reports feeling "good", no complaints of med s/e, slept last night. attending groups. "I forgot what I came in here for", "give me your first name, you'll be in a book" staff notified pt of a visitor here for him and pt quickly left, not wanting to continue with interview. did not appear responding to internal stimuli, has been denying any thoughts to harm self on suicide checks at times intrusive with others. disinhibited. poor boundaries. still hypomanic. no tremor noted. not noted with ataxic or unsteady gait. often pacing halls. PLAN: Cont current meds. qshift VS have been stable will d/c suicide prec 02/08/17 23:00 Noted in EMR that pt received Risp 2mg prn at 16:00. Evening nsg note indicated pt going into wrong room, disoriented, disorganized. considered to r/o Li+tox or delirium, initially d/c'd ativan prn and ordered Li + level for AM. also d/c'd risp prn p/c to nightstaff to check on pt regarding above, RN reported pt A&O, no tremor or ataxia, not appearing delirious, but with incr psychom activity, running down halls at times, not feeling tired presently, requesting more ativan or other med for sleep. Staff notes pt sometimes seems more confused after initially awakening. One time Ambien 5mg tonight. resumed original ativan 2mg tid order, cont zyprexa 10mg tid, and recheck Li+ in AM. Additionally, besides incr psychom activity w/ hypomania/randi, consider akathisia. And, pt reported he typically uses O2 at night at home. May contribute to confusion if desats when asleep w/his [place] hx. Objective: Vital Signs Temp Pulse Resp BP Pulse Ox 36.6 C 94 16 130/94 H 92 02/08/17 08:45 02/08/17 21:05 02/08/17 21:05 02/08/17 21:05 02/08/17 21:05 Laboratory Results 02/07/17 04:00 - Time Spent With Patient Time Spent With Patient: 10min - Pending Discharge Pending Discharge Within 24 Hours: No Pending Discharge Within 48 Hours: No ICD10 Worksheet Patient Problems: Problems Problem Status Onset Bipolar disorder Acute Verbalizes suicidal thoughts Acute
[2017-02-09] MEDS ORDERED: ZOLPIDEM TARTRATE 5 MG TAB PO ONE (00:32)
[2017-02-09] MEDS ORDERED: LORazepam 1 MG TAB ONE (06:25)
[2017-02-09] MEDS: OLANZapine DISINTEGR 10 MG TAB PO SCH (08:17)
[2017-02-09] MEDS: ASPIRIN 81 MG CHEWABLE TAB PO SCH (08:18)
[2017-02-09] MEDS: PROPRANOLOL HCL 10 MG TAB PO SCH ×2 (08:18→20:58)
[2017-02-09] MEDS: LITHIUM CARBONATE 300 MG CAP PO SCH ×3 (08:18→20:59)
--- NOTE | 2017-02-09 08:56 | SOAPPROG ---
SOAP Progress Note Assessment/Plan: Assessment: Bipolar I Manic severe with mixed and psychotic features Cannabis Use Disorder Possible Alcohol Use Disorder and possible alcohol withdrawal Recent suicidal ideation, recent violent ideation, recent seclusions during current hospitalization Borderline type II diabetes, History of hypertension, sleep apnea, possible small vessel CVA per records Hypothyroidism and Hypercalcemia, probably secondary to [place] Possible rapid metabolizer Patient currently on short term certification. Patient no longer on EMEDs, has cooperated with PO medications Patient has continued manic symptoms with irritability and illogical thinking. Patient reports he is unwilling to retry Depakote, Risperdal, Seroquel; notes indicate lack of benefit or side effects from Haldol, Prolixin, Tegretol ( allergy), Latuda, Geodon, Lamictal. No clear benefit from low dose Abilify or Navane prior to admit. Plan: Continue Propranolol 10mg Bid Continue [place] 300mg TID AM [place] level pending Reduce Ativan 1mg TID (recent severe agitation, possible alcohol withdrawal); continue folic acid, thiamine Discontinue scheduled Olanzapine (limited benefit, borderline hyperglycemia) Olanzapine ODT/Zydis 10mg Q4 hours PRN agitation Start Saphris 10mg TID for bipolar disorder. Discussed risk of sedation, allergic reaction, TD, EPS, metabolic syndrome (lower risk than Olanzapine) Monitor behavior, impulse control, irritability, judgment Education about Bipolar Disorder 02/09/17 08:56 Subjective: "What is your problem" "the nurses are trying to kill me" "I'm great and ready to go to work" Patient is a poor historian with rambling speech. Denies physical complaints. Reports he is unwilling to take Depakote or Risperdal or Seroquel 'I felt like shit with those medications.' Reports benefit from [place] and Zyprexa and Ativan. Unable to explain why he is in the hospital - and unable to explain symptoms or problems leading to hospitalization. Reports feeling 'frustrated' most of the time and endorses agitation and irritability. Reports sleeping 4 hours overnight. Objective: Vital Signs Temp Pulse Resp BP Pulse Ox 36.3 C 78 15 127/89 H 96 02/09/17 00:30 02/09/17 00:30 02/09/17 00:30 02/09/17 00:30 02/09/17 00:30 Laboratory Results 02/07/17 04:00 Alert WM, disheveled. Initially cooperative. Briefly agitated and yelling. Speech loud, rapid at times. Mood 'great I am ready to work today' Affect euphoric and irritable at times. Thoughts tangential with flight of ideas. Denies SI or HI or AH. Paranoid about nurses trying to poison him. Memory reduced regarding recent events. Limited insight. Impaired judgment Li level 0.9, Cr 1.2, LFTs WNL, Ca 10.9, glucose 114 over weekend [place] level today pending - Time Spent With Patient Time Spent With Patient: 20 - Pending Discharge Pending Discharge Within 24 Hours: No Pending Discharge Within 48 Hours: No ICD10 Worksheet Patient Problems: Problems Problem Status Onset Bipolar disorder Acute Verbalizes suicidal thoughts Acute
[2017-02-09] MEDS ORDERED: LORazepam 1 MG TAB PO SCH (09:00)
[2017-02-09] MEDS: LORazepam 1 MG TAB PO SCH ×3 (09:48→20:16)
[2017-02-09] MEDS: ASENAPINE MALEATE 10 MG SUBLINGUAL TAB SL SCH ×3 (09:49→20:59)
[2017-02-09] MEDS: LEVOTHYROXINE 125 MCG TAB PO SCH (11:55)
[2017-02-09] MEDS: FOLIC ACID 1 MG TAB PO SCH (20:58)
[2017-02-09] MEDS: THIAMINE HCL 100 MG TAB PO SCH (20:59)
[2017-02-09 22:38] LABS: LITHIUM 0.7 mEq/L (0.6-1.2)
[2017-02-10] MEDS: OLANZapine DISINTEGR 10 MG TAB PO PRN ×2 (03:10→14:03)
[2017-02-10] MEDS: ASENAPINE MALEATE 10 MG SUBLINGUAL TAB SL SCH ×3 (08:30→21:29)
[2017-02-10] MEDS: LEVOTHYROXINE 125 MCG TAB PO SCH (08:30)
[2017-02-10] MEDS: LITHIUM CARBONATE 300 MG CAP PO SCH ×3 (08:30→21:29)
[2017-02-10] MEDS: ASPIRIN 81 MG CHEWABLE TAB PO SCH (08:31)
[2017-02-10] MEDS: PROPRANOLOL HCL 10 MG TAB PO SCH ×2 (08:31→21:29)
[2017-02-10] MEDS: LORazepam 1 MG TAB PO SCH ×2 (08:31→21:30)
--- NOTE | 2017-02-10 09:16 | SOAPPROG ---
SOAP Progress Note Assessment/Plan: Assessment: Bipolar I Manic severe with mixed and psychotic features Cannabis Use Disorder Possible Alcohol Use Disorder and alcohol withdrawal Recent severe agitation with SI and HI - seclusions during current hospitalization (02/05 and 02/06) Borderline type II diabetes History of hypertension, sleep apnea, possible small vessel CVA per records Hypothyroidism and Hypercalcemia, probably secondary to [place] Possible rapid metabolizer Patient currently on short term certification. Patient has continued manic symptoms with grandiosity and was agitated overnight. Patient reports he is unwilling to retry Depakote, Risperdal, Seroquel; notes indicate lack of benefit or side effects from Haldol, Prolixin, Tegretol ( allergy), Latuda, Geodon, Lamictal. No clear benefit from low dose Abilify or Navane prior to admit. Plan: Continue Propranolol 10mg Bid Continue [place] 300mg TID Reduce Ativan 1mg BID (taper for recent possible alcohol withdrawal) Continue Saphris 10mg TID (restarted 02/09) Continue Olanzapine ODT/Zydis 10mg Q4 hours PRN agitation Education about Bipolar Disorder Monitor agitation, impulse control, judgment 02/10/17 09:16 Subjective: "I am excellent, I dont think I am manic anymore. When I leave here I want to dance, be a rock start and a product support technician, and be a spiritual leader.' Patient reports last night getting agitated and angry with poor sleep. Reports he is not suicidal "I just said that before to get into here and put on a show. " Denies violent thoughts, denies owning a gun. Reports allergy to Tegretol. Unwilling to retry Depakote 'it made me real sick.' Unwilling to retry Risperdal, Haldol, Latuda, Geodon, or Abilify 'they don't work or I feel like shit when I take them.' Reports tolerating Saphris so far. Received PRN Zyprexa last night for insomnia/agitation. Reports not wanting increased [place] dose due to tremor and history of borderline renal insufficiency after discussion of risks/benefits. Besides feeling tired denies any somatic complaints. Objective: Vital Signs Temp Pulse Resp BP Pulse Ox 36.4 C 100 16 146/84 H 94 02/10/17 08:00 02/10/17 08:00 10/24/17 08:00 02/10/17 08:00 02/10/17 08:00 Laboratory Results 02/07/17 04:00 Alert WM, disheveled with march. Cooperative. Briefly irritable and agitated. Speech loud, RRR occasional pressure. Thoughts mostly organized but tangential at times. 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 Denies SI or HI. Denies AH or paranoia. poor insight. Questionable judgment. - Time Spent With Patient Time Spent With Patient: 30 - Pending Discharge Pending Discharge Within 24 Hours: No Pending Discharge Within 48 Hours: No ICD10 Worksheet Patient Problems: Problems Problem Status Onset Bipolar disorder Acute Verbalizes suicidal thoughts Acute
[2017-02-10] MEDS ORDERED: NALTREXONE HCL 50 MG TAB PO SCH (18:00)
[2017-02-10] MEDS: THIAMINE HCL 100 MG TAB PO SCH (21:29)
[2017-02-10] MEDS: FOLIC ACID 1 MG TAB PO SCH (21:29)
[2017-02-11] MEDS: OLANZapine DISINTEGR 10 MG TAB PO PRN ×2 (00:19→11:43)
[2017-02-11] MEDS: MELATONIN 3 MG TAB PO PRN (00:19)
[2017-02-11] MEDS: LORazepam 1 MG TAB PO SCH (08:21)
[2017-02-11] MEDS: ASPIRIN 81 MG CHEWABLE TAB PO SCH (08:21)
[2017-02-11] MEDS: LITHIUM CARBONATE 300 MG CAP PO SCH ×3 (08:22→22:23)
[2017-02-11] MEDS: ASENAPINE MALEATE 10 MG SUBLINGUAL TAB SL SCH ×3 (08:22→22:23)
[2017-02-11] MEDS: LEVOTHYROXINE 125 MCG TAB PO SCH (08:22)
[2017-02-11] MEDS: PROPRANOLOL HCL 10 MG TAB PO SCH ×2 (08:22→22:23)
--- NOTE | 2017-02-11 08:59 | SOAPPROG ---
SOAP Progress Note Assessment/Plan: Assessment: Bipolar I Manic severe with mixed and psychotic features Cannabis Use Disorder Possible Alcohol Use Disorder and alcohol withdrawal Recent severe agitation with SI and HI - seclusions during current hospitalization (02/05 and 02/06) Borderline type II diabetes History of hypertension, sleep apnea, possible small vessel CVA per records Hypothyroidism and Hypercalcemia, probably secondary to [place] Possible rapid metabolizer Patient currently on short term certification. Patient has some hypomanic symptoms and decreased sleep but appears improved. Plan: Continue Propranolol 10mg Bid Continue [place] 300mg TID Continue Saphris 10mg TID (restarted 02/09) Change Ativan 1mg BID PRN anxiety Start Klonopin 0.5mg PO QHS for insomnia, discussed risk of sedation, sleep apnea, memory problems, impulsivity, extreme danger if drinking alcohol Continue Olanzapine ODT/Zydis 10mg Q4 hours PRN agitation Increase Naltrexone 50mg QPM for alcohol use disorder Education about Bipolar Disorder Monitor agitation, impulse control, judgment Discussed getting weekly pillboxes from [facility] after discharge 02/11/17 08:57 Subjective: "Like [place] morning" Patient reports continued reduced sleep and difficulty sleeping through the night. Reports feeling calm this AM and denies severe agitation or any thoughts to hurt himself or others. Reports 'when I'm manic I have bad judgment.' Reports feeling improved but having poor sleep. Tolerated Naltrexone yesterday without nausea or side effects. Reports mild tremor. Denies nausea or severe anxiety. Objective: Vital Signs Temp Pulse Resp BP Pulse Ox 36.5 C 67 17 138/86 H 95 02/11/17 06:22 02/11/17 06:22 02/11/17 06:22 02/11/17 06:22 02/11/17 06:22 Laboratory Results 02/07/17 04:00 Alert WM, coarse voice. No focal weakness. Speech RRR, loud at times. Mood ' like [place] morning' Affect euthymic, euphoric at times. Thoughts organized. Denies SI or HI. Denies AH or paranoia. Some grandiose content. Limited insight. Judgment appropriate today. Staff report patient received Zydis 10mg last night for insomnia. - Time Spent With Patient Time Spent With Patient: 30 min - Pending Discharge Pending Discharge Within 24 Hours: No Pending Discharge Within 48 Hours: No ICD10 Worksheet Patient Problems: Problems Problem Status Onset Bipolar disorder Acute Verbalizes suicidal thoughts Acute
[2017-02-11] MEDS: NICOTINE POLACRILEX 2 MG GUM B PRN ×2 (11:43→23:54)
[2017-02-11] MEDS: LORazepam 1 MG TAB PO PRN (13:44)
[2017-02-11] MEDS: NALTREXONE HCL 50 MG TAB PO SCH (16:22)
[2017-02-11] MEDS: THIAMINE HCL 100 MG TAB PO SCH (22:23)
[2017-02-11] MEDS: clonazePAM 0.5 MG TAB PO SCH (22:23)
[2017-02-11] MEDS: FOLIC ACID 1 MG TAB PO SCH (22:23)
[2017-02-12] MEDS: MELATONIN 3 MG TAB PO PRN ×2 (00:34→20:45)
[2017-02-12] MEDS: LORazepam 1 MG TAB PO PRN (00:34)
[2017-02-12] MEDS: OLANZapine DISINTEGR 10 MG TAB PO PRN (00:34)
[2017-02-12] MEDS: PROPRANOLOL HCL 10 MG TAB PO SCH ×2 (08:14→20:44)
[2017-02-12] MEDS: ASPIRIN 81 MG CHEWABLE TAB PO SCH (08:14)
[2017-02-12] MEDS: LITHIUM CARBONATE 300 MG CAP PO SCH ×3 (08:15→20:46)
[2017-02-12] MEDS: ASENAPINE MALEATE 10 MG SUBLINGUAL TAB SL SCH ×2 (08:15→20:45)
[2017-02-12] MEDS: LEVOTHYROXINE 125 MCG TAB PO SCH (09:25)
[2017-02-12] MEDS ORDERED: clonazePAM 0.5 MG TAB PO PRN (13:19)
[2017-02-12] MEDS ORDERED: ASENAPINE MALEATE 10 MG SUBLINGUAL TAB SL ONE (13:45)
--- NOTE | 2017-02-12 14:20 | SOAPPROG ---
SOAP Progress Note Assessment/Plan: Assessment: Bipolar I Manic severe with mixed and psychotic features Cannabis Use Disorder Possible Alcohol Use Disorder and alcohol withdrawal Recent severe agitation with SI and HI - seclusions during current hospitalization (02/05 and 02/06) Borderline type II diabetes History of hypertension, sleep apnea, possible small vessel CVA per records Hypothyroidism and Hypercalcemia, probably secondary to [place] Possible rapid metabolizer Patient currently on short term certification. Patient is irritable with reduced sleep and violent thoughts. Plan: Continue Propranolol 10mg Bid Continue [place] 300mg TID Increase Saphris 20mg BID Continue Klonopin 0.5mg PO QHS for insomnia Start Klonopin 0.5mg PO QHS PRN insomnia Continue Olanzapine ODT/Zydis 10mg Q4 hours PRN agitation Increase Naltrexone 50mg QPM for alcohol use disorder Education about Bipolar Disorder Monitor agitation, impulse control, judgment 02/12/17 14:20 Subjective: "Feel like smacking someone" Patient reports feeling angry and irritable and frustrated. Unable to explain why. Later reports he is upset that his brother hasn't visited recently. Denies AH or paranoia. Denies wanting to hurt anyone in particular. Denies any physical complaints. Reports he is tired because he cannot sleep well at night. Denies stiffness or restless or sedation or slowing. Denies constipation, diarrhea, abdominal pain, or difficulty urinating. Objective: Vital Signs Temp Pulse Resp BP Pulse Ox 37.1 C 66 15 137/94 H 95 02/12/17 00:30 02/12/17 00:30 02/12/17 00:30 02/12/17 00:30 02/12/17 00:30 Laboratory Results 02/07/17 04:00 Alert WM, pacing, psychomotor agitated. Speech loud but RRR. Mood 'feeling like smacking someone.' Affect briefly irritable. Thoughts organized, limited information. Reports violent thoughts, denies any specific target. Denies AH or paranoia. Limited insight. Impaired judgment. Staff report patient slept 4-5 hours but got PRN Zydis 10mg, along with Ativan 1mg PRN 1-2 hours after HS medication. Patient has been inappropriately yelling at other patients. - Time Spent With Patient Time Spent With Patient: 20 minutes - Pending Discharge Pending Discharge Within 24 Hours: No Pending Discharge Within 48 Hours: No ICD10 Worksheet Patient Problems: Problems Problem Status Onset Verbalizes suicidal thoughts Acute Bipolar disorder Acute
[2017-02-12] MEDS: FOLIC ACID 1 MG TAB PO SCH (20:46)
[2017-02-12] MEDS: THIAMINE HCL 100 MG TAB PO SCH (20:46)
[2017-02-12] MEDS: NALTREXONE HCL 50 MG TAB PO SCH (20:46)
[2017-02-12] MEDS: clonazePAM 0.5 MG TAB PO SCH (20:46)
[2017-02-13] MEDS: OLANZapine DISINTEGR 10 MG TAB PO PRN (01:32)
[2017-02-13] MEDS: ASENAPINE MALEATE 10 MG SUBLINGUAL TAB SL SCH ×2 (08:09→20:57)
[2017-02-13] MEDS: LITHIUM CARBONATE 300 MG CAP PO SCH ×3 (08:09→20:57)
[2017-02-13] MEDS: PROPRANOLOL HCL 10 MG TAB PO SCH ×2 (08:10→20:58)
[2017-02-13] MEDS: ASPIRIN 81 MG CHEWABLE TAB PO SCH (08:10)
[2017-02-13] MEDS: NICOTINE POLACRILEX 2 MG GUM B PRN ×2 (09:37→13:59)
[2017-02-13] MEDS: LEVOTHYROXINE 125 MCG TAB PO SCH (10:33)
[2017-02-13] MEDS ORDERED: ASENAPINE MALEATE 10 MG SUBLINGUAL TAB SL PRN (14:45)
--- NOTE | 2017-02-13 14:53 | SOAPPROG ---
SOAP Progress Note Assessment/Plan: Assessment: Bipolar I Manic severe with mixed and psychotic features Cannabis Use Disorder Alcohol Use Disorder Borderline type II diabetes Sleep Apnea - usually uses 2L oxygen NC Hypertension Hypothyroidism and Hypercalcemia, probably secondary to [place] Probable rapid metabolizer Patient currently on short term certification. Patient appears hypomanic and is over talkative with mild grandiosity but is calm and denies dangerous thoughts. Plan: Continue Propranolol 10mg Bid Continue [place] 300mg TID Continue Saphris 20mg BID, increased 02/12 Discontinue PRN Zydis Start Saphris 10mg SL BID PRN agitation Discontinue scheduled Klonopin. Start Gabapentin 300mg QHS for insomnia. Discussed restarting O2 2L [place] after discharge from psychiatric unit. Oxygen tubing on unit may not be safe due to risk that other patients may use tubing to harm themselves. Requested nurses check a nocturnal pulse ox tonight. Continue Naltrexone 50mg QPM for alcohol use disorder Education about Bipolar Disorder Monitor agitation, impulse control, judgment over weekend Plan discharge Thursday02/16/17 if stable, weekly pillboxes and psychiatric follow up at [facility] 02/13/17 15:00 Subjective: "I know what I need to do doc" Patient reports that overall he feels more calm and now recognizes that he has to be calm and act appropriately toward others in order to be discharged. Reports he struggles not to take the actions of others personally. Reports he doesn't want to take Zyprexa or Depakote again due to fear of severe weight gain that he experienced previously. Reports his goal is to return to apartment where he lives with his cat (brother is currently taking care of cat) . Reports smoking one joint and drinking 2-3 beers nightly prior to admission. Reports he wants to stop alcohol use but is unwilling to quit cannabis 'it lowers my anxiety.' Reports working 20 hours a week at [facility] and having a good relationship at work. 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 Denies constipation, dysuria, diarrhea, stiffness. Reports mild extension tremor but denies ataxia. Reports difficulty falling asleep and staying asleep. Objective: Vital Signs Temp Pulse Resp BP Pulse Ox 36.3 C 111 H 16 165/85 H 96 02/13/17 06:27 02/13/17 08:10 02/13/17 06:27 02/13/17 08:10 02/13/17 06:27 Laboratory Results 02/07/17 04:00 Alert WM. Cooperative. Speech RRR, loud at times. Affect euthymic, euphoric at times. Mood 'I fine, ready to go' Thoughts organized but tangential at times. Denies SI or HI. Denies AH or paranoia. Mild grandiosity. Insight limited. Judgment appropriate. 11:00 non-fasting glucometer 107 today - Time Spent With Patient Time Spent With Patient: 20 - Pending Discharge Pending Discharge Within 24 Hours: No Pending Discharge Within 48 Hours: No ICD10 Worksheet Patient Problems: Problems Problem Status Onset Bipolar disorder Acute Verbalizes suicidal thoughts Acute
[2017-02-13] MEDS: NALTREXONE HCL 50 MG TAB PO SCH (15:35)
[2017-02-13] MEDS: THIAMINE HCL 100 MG TAB PO SCH (20:57)
[2017-02-13] MEDS: GABAPENTIN 300 MG CAP PO SCH (20:57)
[2017-02-13] MEDS: FOLIC ACID 1 MG TAB PO SCH (21:28)
[2017-02-14] MEDS: MELATONIN 3 MG TAB PO PRN (01:19)
[2017-02-14] MEDS: clonazePAM 0.5 MG TAB PO PRN ×2 (02:08→09:21)
[2017-02-14] MEDS: PROPRANOLOL HCL 10 MG TAB PO SCH ×2 (07:56→21:42)
[2017-02-14] MEDS: ASPIRIN 81 MG CHEWABLE TAB PO SCH (07:56)
[2017-02-14] MEDS: LITHIUM CARBONATE 300 MG CAP PO SCH ×3 (07:57→21:42)
[2017-02-14] MEDS: ASENAPINE MALEATE 10 MG SUBLINGUAL TAB SL SCH ×2 (07:57→21:43)
[2017-02-14] MEDS: LEVOTHYROXINE 125 MCG TAB PO SCH (10:00)
--- NOTE | 2017-02-14 14:03 | SOAPPROG ---
SOAP Progress Note Assessment/Plan: Assessment: Per Dr. Jaramillo's notes: Plan: Continue Propranolol 10mg Bid Continue [place] 300mg TID Continue Saphris 20mg BID, increased 02/12 Discontinue PRN Zydis Start Saphris 10mg SL BID PRN agitation Discontinue scheduled Klonopin. Start Gabapentin 300mg QHS for insomnia. Discussed restarting O2 2L [place] after discharge from psychiatric unit. Oxygen tubing on unit may not be safe due to risk that other patients may use tubing to harm themselves. Requested nurses check a nocturnal pulse ox tonight. Continue Naltrexone 50mg QPM for alcohol use disorder Education about Bipolar Disorder Monitor agitation, impulse control, judgment over weekend Plan discharge Thursday02/16/17 if stable, weekly pillboxes and psychiatric follow up at [facility] 02/14/17 13:59 1. CCM 2. Plan to d/c Thursday 3. Less impulsivity and irritability today. Subjective: Met with patient, reviewed chart and d/w staff. Patient wanted to let MD know that he was "cooperating" and doing "what I'm supposed to." He is very concerned about jeopardizing his planned d/c on Thursday. He wants MD to know that he had outburst this AM with one of the nurses, "the big, fat, ugly one" but that he calmed himself down and "things are going much better now." He blames nursing staff and says they "agitate me on purpose." But he says his new meds are "seeming really good" and "helping." He also has concerns about his [facility] providers. He says "two of them are really evil, but one is good." Patient denies any SI/HI. Objective: Vital Signs Temp Pulse Resp BP Pulse Ox 36.6 C 95 14 145/77 H 95 02/14/17 00:30 02/14/17 08:00 02/14/17 08:00 02/14/17 08:00 02/14/17 08:00 Laboratory Results 02/07/17 04:00 MSE: Affect: Irritable, labile (but less than previous days) Mood: Angry at times, but calmer in general TP: Tangential TC: Denies any SI/HI, no AH/VH Insight/Judgment: Poor - Time Spent With Patient Time Spent With Patient: 20" - Pending Discharge Pending Discharge Within 24 Hours: No Pending Discharge Within 48 Hours: Yes Pending Discharge Date: 02/16/17 (Likely to d/c on Thursday with [facility] f/u) Pending Discharge Time: 11:00 ICD10 Worksheet Patient Problems: Problems Problem Status Onset Bipolar disorder Acute Verbalizes suicidal thoughts Acute
[2017-02-14] MEDS: NALTREXONE HCL 50 MG TAB PO SCH (15:49)
[2017-02-14 17:26] VITALS: RESP 16
[2017-02-14] MEDS: FOLIC ACID 1 MG TAB PO SCH (21:42)
[2017-02-14] MEDS: GABAPENTIN 300 MG CAP PO SCH (21:42)
[2017-02-14] MEDS: THIAMINE HCL 100 MG TAB PO SCH (21:43)
[2017-02-15] MEDS: clonazePAM 0.5 MG TAB PO PRN (00:55)
[2017-02-15] MEDS: LITHIUM CARBONATE 300 MG CAP PO SCH ×3 (08:24→22:16)
[2017-02-15] MEDS: ASENAPINE MALEATE 10 MG SUBLINGUAL TAB SL SCH ×2 (08:25→22:16)
[2017-02-15] MEDS: PROPRANOLOL HCL 10 MG TAB PO SCH ×2 (08:25→22:16)
[2017-02-15] MEDS: ASPIRIN 81 MG CHEWABLE TAB PO SCH (08:25)
[2017-02-15] MEDS: LEVOTHYROXINE 125 MCG TAB PO SCH (09:42)
--- NOTE | 2017-02-15 13:18 | SOAPPROG ---
SOAP Progress Note Assessment/Plan: Assessment: Per Dr. Jaramillo's notes: Plan: Continue Propranolol 10mg Bid Continue [place] 300mg TID Continue Saphris 20mg BID, increased 02/12 Discontinue PRN Zydis Start Saphris 10mg SL BID PRN agitation Discontinue scheduled Klonopin. Start Gabapentin 300mg QHS for insomnia. Discussed restarting O2 2L [place] after discharge from psychiatric unit. Oxygen tubing on unit may not be safe due to risk that other patients may use tubing to harm themselves. Requested nurses check a nocturnal pulse ox tonight. Continue Naltrexone 50mg QPM for alcohol use disorder Education about Bipolar Disorder Monitor agitation, impulse control, judgment over weekend Plan discharge Thursday02/16/17 if stable, weekly pillboxes and psychiatric follow up at [facility] 02/14/17 13:59 1. CCM 2. Plan to d/c Thursday 3. Less impulsivity and irritability today. 02/15/17 13:14 1. CCM 2. Patient says he is trying to be on his "best behavior" and not "get angry at anybody," so far is mostly successful Subjective: Met with patient and d/w staff. Patient was crying after listening to a song in group, but says it made him "happy, not sad." He is less irritable and complains less about staff today. He told RN this AM "I'm going to be so good today, I'll be like a new person." He apologized for his rude behavior to RN yesterday. He denies any SI/HI. Objective: Vital Signs Temp Pulse Resp BP Pulse Ox 36.9 C 92 16 147/81 H 95 02/14/17 16:00 02/15/17 08:25 02/14/17 16:00 02/15/17 08:25 02/14/17 16:00 Laboratory Results 02/07/17 04:00 MSE: Affect: Euthymic Mood: "Good" less irritable and not angry or agitated TP : Goal-directed TC: Denies any SI/HI, no AH/VH Insight/Judgment: Fair - Time Spent With Patient Time Spent With Patient: 15" - Pending Discharge Pending Discharge Within 24 Hours: Yes Pending Discharge Date: 02/16/17 (Likely to d/c on Thursday with f/u at [facility]) Pending Discharge Time: 11:00 ICD10 Worksheet Patient Problems: Problems Problem Status Onset Bipolar disorder Acute Verbalizes suicidal thoughts Acute
[2017-02-15] MEDS: NALTREXONE HCL 50 MG TAB PO SCH (16:03)
[2017-02-15] MEDS: FOLIC ACID 1 MG TAB PO SCH (22:17)
[2017-02-15] MEDS: GABAPENTIN 300 MG CAP PO SCH (22:17)
[2017-02-15] MEDS: THIAMINE HCL 100 MG TAB PO SCH (22:17)
[2017-02-16] MEDS: clonazePAM 0.5 MG TAB PO PRN (02:41)
[2017-02-16 06:37] VITALS: BP 155/90; PULSE 84; TEMP 97.2; O2SAT 98
[2017-02-16] MEDS: ASENAPINE MALEATE 10 MG SUBLINGUAL TAB SL SCH (08:22)
[2017-02-16] MEDS: PROPRANOLOL HCL 10 MG TAB PO SCH (08:22)
[2017-02-16] MEDS: LITHIUM CARBONATE 300 MG CAP PO SCH (08:22)
[2017-02-16] MEDS: ASPIRIN 81 MG CHEWABLE TAB PO SCH (08:22)
--- NOTE | 2017-02-16 12:10 | BDS ---
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 He has several siblings in the area that are supportive. ADMITTING DIAGNOSES: Bipolar disorder type 1, most recent episode manic, severe , with mixed and psychotic features; and cannabis use disorder. BRIEF PSYCHIATRIC HISTORY: The patient reports onset of severe mood symptoms starting at age 17. He reports between ages of 17 and 35, having 10 psychiatric hospitalizations on the [facility]. He reports 2 of them were for depression and suicidal ideation. The other 8 were for manic symptoms. He reports 1 overdose on Valium in his 20s. He denies other suicide attempts. He denies arrests or any history of violence toward others. The patient was in outpatient treatment at [facility] prior to admission, and reportedly was taking lithium 600 mg a day, Abilify 2 mg a day and Navane 4 mg a day. He has a history of an allergy to Tegretol, EPS or akathisia from Haldol and Prolixin, a history of weight gain from Depakote and Zyprexa, and a history of side effects from Geodon, Latuda, Risperdal, and Lamictal. BRIEF MEDICAL HISTORY: The patient has a history of hypothyroidism and takes Synthroid. He has a history of a possible small vessel cerebrovascular accident many years ago. He has a history of borderline type 2 diabetes; history of sleep apnea, treated with 2 L nasal cannula of oxygen. The patient also has a history of alcohol and cannabis abuse. REASON FOR ADMISSION: The patient apparently went to the walk-in clinic reporting severe mood symptoms as well as suicidal thoughts to jump off the roof of a building. The patient was taken on an M1 hold by police to the emergency department. In the emergency department, the patient appeared manic was agitated, hyperverbal, intrusive, loud and disruptive. He received multiple doses of Ativan and Zyprexa in the emergency department, and then transferred to the inpatient psychiatric unit. INITIAL EXAM: He was an alert white male, who was ambulatory with a march. He was loud, screaming with a rapid voice. His mood was "upset." His affect was irritable, agitated. He was slamming doors, throwing food trays, and screaming profanity. He was also menacing staff with clenched fists. He reported recent thoughts of suicide to jump off a building. He was a poor historian. HOSPITAL COURSE: The patient's brother and outpatient team at [facility] were notified of the patient's admission after the patient signed releases of information. The patient was extremely manic, agitated, labile. He was also menacing staff with clenched fists, and impulsively screaming using profanity, punching the ignacio. He also made terroristic threats of wanting to shoot the staff, and he also made suicidal statements about jumping off the roof of a building in order to crack his head open. The patient was quite manic on the unit. He was started on Zyprexa Zydis, as well as Ativan to calm down. The patient did go into seclusion on , February 05 and ThursdayFebruary 06 due to making terroristic threats and menacing staff, making multiple violent threats. The patient was continued on his lithium. It was increased to 900 mg a day because the blood level in the ER was low. The patient's lithium level was rechecked on the unit. He had blood levels of 0.7 and 0.9 for his lithium level after he had been taking the 900 mg a day consistently. The patient's TSH was 1.2. He was continued on his Synthroid. The patient's lisinopril was discontinued due to borderline elevated creatinine and a low sodium level. The patient's liver function tests were normal. He had glucose levels of 107 and 114 on the inpatient unit. His creatinine was 1.2, sodium 144. The patient was also probably having some alcohol withdrawal symptoms, as he had elevated blood pressure and a tremor that improved with Ativan. He eventually needed 6 mg Ativan a day and 30 mg of Zyprexa to calm down. Due to borderline elevated blood glucose and a history of type 2 diabetes, we switched his Zyprexa to Saphris, which probably has a lower risk of metabolic syndrome. Of note, the patient reports a history of extrapyramidal side effects to Prolixin and Haldol and repeated declined to retry Risperdal or Depakote. The patient had a marked improvement when he was compliant with the [place] and Zyprexa and later Saphris. The Saphris was titrated up to 20 mg twice a day to reduce his manic symptoms. He became less irritable, less agitated, more calm, more appropriate, less grandiose, less pressured, less irritable, and had better sleeping patterns. The patient was not given oxygen for his sleep apnea on the unit due to concerns about safety with the oxygen tubing. He did have nocturnal pulse ox that was normal without oxygen. The patient had his Ativan tapered. The patient was eventually switched to gabapentin 300 mg by mouth at bedtime for insomnia. The patient was initially on M1 hold and then placed on a short-term certification. The patient largely complied with oral medications. The patient had a primary care consult on the unit. The patient was given propranolol 10 mg twice a day, as he had been taking this prior to admission, for history of extension tremor that may be from [place]. The patient had borderline hypertension on the unit, and was agreeable to see a primary care doctor after discharge to further manage his blood pressure. The patient was started on naltrexone for alcohol cravings, as he reported drinking 2-3 drinks a night. His brother reported the patient drinks 3-4 drinks a night. The patient was warned about the risks of alcohol causing depression, cognitive impairment and impulsive behavior. He was warned about the risk of cannabis causing anxiety, paranoia, and memory problems. The patient was given information about the risks of [place], including the risk of hypothyroidism, renal dysfunction, and drug interactions with nonsteroidal anti-inflammatory drugs and diuretic blood pressure medicines. The patient was given information about the risks of Saphris, including the risks including metabolic syndrome, neuroleptic malignant syndrome, tardive dyskinesia and sedation. Overall the patient has a marked improvement in symptoms. Prior to discharge he was calm and appropriate, not displaying any intrusive or disruptive behaviors, and was denying any dangerous thoughts. CONDITION AT DISCHARGE: This is an alert white male in no acute distress with a march. He is ambulatory and cooperative. He has a mild tremor with extension of his hands. His speech is regular rate and rhythm. His thoughts are organized. His mood is "pretty good." His affect is euthymic. He denies any thoughts to hurt himself or others. He denies paranoia or hallucinations. His memory is fair. His insight is good. His judgment is appropriate. DISCHARGE DIAGNOSES: Bipolar disorder type 1, most recent episode manic, severe with psychotic features; Cannabis use disorder, severe alcohol use disorder, moderate; Hypothyroidism; Borderline renal insufficiency; Borderline type 2 diabetes History of sleep apnea. DISCHARGE MEDICATIONS: Saphris 20 mg sublingual twice a day. Of note, this physician completed a Medicare Part D prior authorization for his [email or web address] Medicare Part D plan that was faxed to that plan. Patient was given a copy to take to his pharmacy. Gabapentin 300 mg p.o. q.h.s., [place] 300 mg p.o. t.i.d., Naltrexone 50 mg p.o. q.p.m., Propranolol 10 mg p.o. b.i.d. Levothyroxine 125 mcg p.o. q. day, Aspirin 81 mg p.o. q. day. DISPOSITION: The patient is going to go to [facility], which is down the street from the hospital. His prescriptions were written for his medications to be dispensed once a week from their pharmacy. The patient will then return home. He reports that his brother can help him get home, and his brother has been taking care of his cat. The patient was given a letter documenting the dates of his hospitalization and that he can return to work in 2 weeks. FOLLOWUP: The patient has appointment at [facility], and they will assist him in getting a primary care followup. LEGAL STATUS: The patient was admitted on an M1 hold. He was placed on a short -term certification. This will be terminated when the patient is discharged so he can get outpatient treatment on a voluntary basis. /[id number]/MODL MTDD
== END 2017-02-16 09:06 | disposition home or self-care (01) | DRG 885 ==
LOC: BBEH 02-04 11:40
PROVIDERS: ADMIT Psychiatry & Neurology Psychiatry; ATTEND Psychiatry & Neurology Psychiatry
DX: F31.64 Bipolar disorder, current episode mixed, severe, with psychotic features (principal); I69.992 Facial weakness following unspecified cerebrovascular disease; G47.33 Obstructive sleep apnea (adult) (pediatric); I10 Essential (primary) hypertension; E78.5 Hyperlipidemia, unspecified; E03.9 Hypothyroidism, unspecified; Z79.82 Long term (current) use of aspirin; F12.90 Cannabis use, unspecified, uncomplicated
CPT/HCPCS: 80305; 84402-90; G0480

== ENCOUNTER 2017-02-24 20:09 | Inpatient (IN) | payer OTHER, MEDICAID ==
[2017-02-24] MEDS ORDERED: OLANZapine DISINTEGR 10 MG TAB ONE (21:07)
[2017-02-24] MEDS ORDERED: OLANZapine DISINTEGR 10 MG TAB PO ONE (21:08)
[2017-02-24 22:12] LABS: % IMMATURE GRANULYOCYTES 0.7 % (0.0-1.1); ABSOLUTE IMMATURE GRANULOCYTES 0.08 10^3/uL (0.00-0.10); ADD DIFF? NO; ADD MORPH? NO; ADD SCAN? NO; ATYPICAL LYMPHOCYTE FLAG 0 (0-99); FRAGMENT RBC FLAG 0 (0-99); HEMATOCRIT 44.5 % (40.0-51.0); HEMOGLOBIN 14.6 g/dL (13.7-17.5); LEFT SHIFT FLG 0 (0-99); LIPEMIA HEMOLYSIS FLAG 80 (0-99); MEAN CELL HEMOGLOBIN CONCENTR. 32.8 g/dL (32.4-36.7); MEAN CELL VOLUME 88.3 fL (81.5-99.8); MEAN PLATELET VOLUME 11.3 fL (8.7-11.7); PLATELET CLUMPS FLAG 0 (0-99); PLATELET COUNT 172 10^3/uL (150-400); RED BLOOD CELL COUNT 5.04 10^6/uL (4.40-6.38); RED CELL DISTRIBUTION WIDTH 13.4 % (11.5-15.2)
[2017-02-24 22:29] LABS: ANION GAP 14 mEq/L (8-16); CALCIUM 10.6 mg/dL (8.5-10.4); CARBON DIOXIDE 20 mEq/l (22-31); CHLORIDE 108 mEq/L (97-110); CREATININE 1.1 mg/dL (0.7-1.3); ETHANOL SERUM < 10 mg/dL (0-10); GLOMERULAR FILTRATION RATE > 60; GLUCOSE 83 mg/dL (70-100); LITHIUM 0.7 mEq/L (0.6-1.2); SODIUM 142 mEq/L (134-144)
--- NOTE | 2017-02-24 23:03 | EDPHY ---
Addendum entered and electronically signed by Alonso Badillo MD 02/25/17 06: 35: 0630AM: Patient signed over to Dr. Marmolejo at 7:00 a.m. shift change. Possible 3N admission if bed opens. Addendum entered and electronically signed by Alonso Badillo MD 02/25/17 05: 21: 0521: Patient has an allergy to Haldol. I have ordered Geodon 10 mg IM. Addendum entered and electronically signed by Alonso Badillo MD 02/25/17 05: 05: 0505: This patient continues to be somewhat agitated at times. He received total 20 mg of Zyprexa and Ativan. Additionally he receives Seroquel. Long history of bipolar disorder. Ordered Haldol. Addendum entered and electronically signed by Alonso Badillo MD 02/25/17 01: 56: 0156AM: This patient has had a mental health evaluation. Recommending inpatient psychiatric hospitalization. They would like to readmit him at [address] [place] [address] however there is no availability at this time. Original Note: H & P Smoking Status: Former smoker Time Seen by Provider: 02/24/17 21:48 HPI/ROS: HPI Manic behavior. History of bipolar disorder. 61-year-old male by private vehicle with his brother. This patient has a history of bipolar disorder. He was recently admitted to [address] [place] [address] for inpatient management from approximately February 03 through February 16. His mother brings him to the emergency department stating that he has become increasingly paranoid and manic. He is not suicidal. He denies depression. ROS: Constitutional: No fever, no chills. No weakness. Eyes: No discharge. No changes in vision. ENT: No sore throat. No nasal congestion or rhinorrhea. Respiratory: No cough. No shortness of breath. Cardiac: No chest pain, no palpitations. Gastrointestinal: No abdominal pain, no vomiting, no diarrhea. Genitourinary: No hematuria. No dysuria or increased frequency with urination. Musculoskeletal: No back pain. No neck pain. No myalgias or arthralgias. Skin: No rashes. Neurological: No headache. No focal weakness or altered sensation. Past medical history: Bipolar. Social history: Nonsmoker. Came with his brother. Now here alone. No alcohol. Physical Exam: General Appearance: Alert, anxious/manic. This patient is responding to questions appropriately and in full sentences. This patient appears well- hydrated and well-nourished. Eyes: Pupils equal and round no pallor or injection. No lid edema, erythema or injection. Respiratory: There are no retractions, lungs are clear to auscultation with good air movement bilaterally. Cardiovascular: Regular rate and rhythm. No murmur. Gastrointestinal: Abdomen is soft and nontender, no masses, bowel sounds normal. No focal tenderness at McBurney's point. No Carreon sign. Neurological: Motor sensory function is grossly intact. Cranial nerves are normal. Gait is normal. Skin: Warm and dry, no rashes. Musculoskeletal: Neck is supple and nontender. Extremities are symmetrical. All joints range without pain or impingement. Psychiatric: As above. No depression. Database: EKG: Imaging: Procedures: Emergency department course: Appropriate blood work sent. Vital signs reviewed. EPS notified. He was given 10 mg of oral Zyprexa. 11:00 p.m., patient re-evaluated. Sleeping but easily arousable. His blood work is been reviewed by myself. He has been medically cleared for behavioral health evaluation. EPS is aware. Care turned over to Dr. Alonso Badillo at this time. Differential Diagnosis: The differential diagnosis on this patient includes but is not limited to bipolar with manic features. Acute psychosis, schizophrenia, borderline personality unlikely. This represents a partial list of diagnoses considered. These considerations are based on history, physical exam, past history, reassessment and diagnostic testing. (Rubio Zamora) Constitutional: Initial Vital Signs Temperature (C) 37.0 C 02/24/17 20:12 Heart Rate 105 H 02/24/17 20:12 Respiratory Rate 18 02/24/17 20:12 Blood Pressure 126/103 H 02/24/17 20:12 O2 Sat (%) 95 02/24/17 20:12 O2 Delivery Mode Room Air Allergies/Adverse Reactions: carbamazepine [From Tegretol] Allergy (Verified 02/06/17 14:54) fluphenazine enanthate [From Prolixin] Allergy (Verified 04/02/14 15:18) fluphenazine HCl [From Prolixin] Allergy (Verified 04/02/14 15:18) haloperidol [From Haldol] Allergy (Verified 04/02/14 15:18) haloperidol lactate [From Haldol] Allergy (Verified 04/02/14 15:18) "all pain killers" Allergy (Uncoded 04/02/14 15:18) "don't do well on me" Home Medications: Medication Instructions Recorded Aspirin [Aspirin 81mg (*)] 81 mg PO DAILY 02/04/17 Asenapine Maleate [Saphris] 20 mg SL BID #120 tab 02/16/17 Gabapentin [Neurontin 300 MG (*)] 300 mg PO HS #30 cap 02/16/17 Seagraves Carbonate [Seagraves 300 mg PO TID #90 cap 02/16/17 Carbonate Cap 300 mg (*)] Naltrexone HCl [Revia] 50 mg PO 1800 #30 tab 02/16/17 Propranolol HCl [Inderal 10mg (*)] 10 mg PO BID #60 tab 02/16/17 LORazepam [Ativan (*)] 2 mg PO DAILY PRN 02/25/17 OLANZapine [Zyprexa] 20 mg PO HS 02/25/17 Thiothixene [Navane 1mg (*)] 2 mg PO BID 02/25/17 Medical Decision Making Other Provider: 7:50 a.m. patient accepted at [address] [place] [address] Dorado. Transfer paperwork completed. (Omar Marmolejo) - Data Points Laboratory Results: Laboratory Results 02/24/17 22:05 02/24/17 22:05 Medications Given: Discontinued Medications Asenapine (Saphris) 10 mg SL EDNOW ONE Stop: 02/24/17 23:56 Last Admin: 02/25/17 00:43 Dose: 10 mg Diazepam (Valium) 5 mg PO EDNOW ONE Stop: 02/25/17 05:25 Last Admin: 02/25/17 05:25 Dose: 5 mg Seagraves Carbonate (Seagraves Carbonate) 300 mg PO EDNOW ONE Stop: 02/24/17 23:57 Last Admin: 02/24/17 23:58 Dose: 300 mg Lorazepam (Ativan) 2 mg PO EDNOW ONE Stop: 02/25/17 01:25 Last Admin: 02/25/17 01:20 Dose: 2 mg Naltrexone HCl (Revia) 50 mg PO EDNOW ONE Stop: 02/24/17 23:57 Last Admin: 02/25/17 01:44 Dose: Not Given Olanzapine (Zyprexa Zydis) 10 mg PO EDNOW ONE Stop: 02/24/17 21:09 Last Admin: 02/24/17 21:10 Dose: 10 mg Olanzapine (Olanzapine) 10 mg PO ONCE ONE Stop: 02/25/17 01:58 Last Admin: 02/25/17 02:27 Dose: 10 mg Departure - Departure Disposition: [facility] IP Clinical Impression: Bipolar 1 disorder with moderate randi Condition: Fair
[2017-02-24] MEDS ORDERED: ASENAPINE MALEATE 10 MG SUBLINGUAL TAB SL ONE (23:55)
[2017-02-24] MEDS ORDERED: NALTREXONE HCL 50 MG TAB PO ONE (23:56)
[2017-02-24] MEDS ORDERED: LITHIUM CARBONATE 300 MG TAB PO ONE (23:56)
[2017-02-25] MEDS ORDERED: LORazepam 1 MG TAB ONE (00:59)
[2017-02-25] MEDS ORDERED: LORazepam 1 MG TAB PO ONE (01:24)
[2017-02-25] MEDS ORDERED: OLANZapine 5 MG TAB PO ONE (01:57)
[2017-02-25] MEDS ORDERED: OLANZapine 5 MG TAB ONE (02:28)
[2017-02-25] MEDS ORDERED: ZIPRASIDONE MESYLATE 20 MG VIAL IM PRN (05:21)
[2017-02-25] MEDS ORDERED: DIAZEPAM 5 MG TAB ONE (05:23)
[2017-02-25] MEDS ORDERED: DIAZEPAM 5 MG TAB PO ONE (05:24)
[2017-02-25] MEDS ORDERED: MAGNESIUM HYDROXIDE 30 ML UDCUP PO PRN (09:22)
[2017-02-25] MEDS ORDERED: clonazePAM 1 MG TAB PO PRN (11:10)
[2017-02-25] MEDS: ARIPiprazole 2 MG TAB PO SCH (11:55)
--- NOTE | 2017-02-25 12:13 | BAPA ---
[f rep st] ADMISSION PSYCHIATRIC ASSESSMENT IDENTIFICATION: This is a 61-year-old single white male, who lives alone in an apartment with a cat. 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 CHIEF COMPLAINT: "Your medication does not work. I don't wanna take your medication. I'm flying high like a kite. I'm manic. Some people need to do more things for me. I am on an evolving spiral uphill and downhill. I need to come down to earth. I need to get back on my Navane and Abilify." HISTORY OF PRESENT ILLNESS: Per the emergency room notes, the patient was taken to the emergency room by his brother. The patient apparently was acting disorganized and irritable, was unable to explain his medication regimen, and was loud and demanding and not sleeping at night. The patient was placed on an M1 hold for grave disability due to disorganized thinking and agitation. The patient is a poor historian, but reports after being discharged from the hospital on February 16 that he did fill his prescription pill box at [facility]. He reports he has been compliant with lithium and Saphris, but reports he does not want to take Saphris anymore due to the bad taste of that medication. He also reports he has been smoking cannabis daily. He denies alcohol use. He denies any violent thoughts or any violent behavior. He denies any suicidal thoughts or suicidal or self-injurious behaviors. He denies auditory hallucinations or paranoia. He reports feeling irritable, agitated, having racing thoughts, and reduced sleep. He reports that he has difficulty keeping track of his medications and has been unable to return to work since discharge. He reports arthritis in his knees. He denies constipation, dry mouth, difficulty urinating, or any weakness in his arms or legs. He reports he normally uses oxygen 2 L nasal cannula at night for history of sleep apnea, reports this improves the quality of sleep but not the duration. He reports he is unwilling to restart Saphris, but is willing to take lithium. He requests to be restarted on Abilify, Navane, which he has taken previously. PAST PSYCHIATRIC HISTORY: The patient apparently had approximately 10 psychiatric hospitalizations on the [facility] near [facility] where the patient grew up between ages of 17 and 35. Reportedly the hospitalizations were for manic symptoms, 2 of them were for suicidal ideation, and 1 of them was for a suicidal Valium overdose. The patient denies any history of violence toward others or any arrests. The patient had a psychiatric hospitalization here at [facility] in January of 2017. During that episode, he was manic with grandiose delusions, paranoid delusions, severe agitation, suicidal threats and violent threats, and required seclusion due to agitation and menacing behaviors. The patient was discharged from [facility] February 16 on the following medications: Saphris 20 mg sublingual b.i.d., gabapentin 300 mg p.o. h.s., lithium 300 mg p.o. t.i.d., naltrexone 50 mg p.o. h.s. for alcoholism, propranolol 10 mg p.o. b.i.d., levothyroxine 125 mcg p.o. daily, and aspirin 81 mg p.o. daily. The patient has outpatient treatment at [facility] with Dr. Archuleta. The patient has history of side effects from several psychiatric medications. He reportedly had benefit but weight gain from Depakote and Zyprexa. He either had no benefit or side effects from Geodon, Latuda, Risperdal, and Lamictal. The patient has a history of akathisia from Haldol and Prolixin, and possibly an allergic rash from Tegretol. The patient has a history of daily cannabis use for many years. He also has a history of alcohol abuse and daily alcohol use of 2-4 drinks, but denied drinking alcohol prior to the current hospitalization. ALLERGIES: The patient has listed allergies to Tegretol, Haldol, and Prolixin. PAST MEDICAL HISTORY: The patient has a history of hypothyroidism and takes Synthroid 125 mcg daily. He has a history of a possible small vessel cerebrovascular accident many years ago, and takes daily aspirin 81 mg daily. He has a history of borderline type 2 diabetes; history of sleep apnea treated with 2 L nasal cannula of oxygen. The patient apparently had a sleep study that showed he had borderline symptoms and may or may not actually need that oxygen and was not treated with this during his previous hospitalization. The patient has a history of borderline renal insufficiency and borderline hypertension. SOCIAL HISTORY: The patient lives alone in apartment with a cat. He receives Social Security Disability benefits. 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 He has 4-5 siblings in the area, who help take care of his cat when he is in the hospital and provide him with outpatient support. Patient denies childhood abuse or neglect; graduated from High School , no ; denies marriage or children. FAMILY HISTORY: He has multiple relatives with substance use disorders, a sister with obsessive-compulsive disorder. VITAL SIGNS: Blood pressure 139/83, pulse 84, respiratory rate 15, pulse ox 98 % on room air. LABS: In the emergency department, the patient had a white blood cell count 11.9, hemoglobin 14.6, platelet 172. Sodium 142, potassium 4.0, creatinine 1.1 , glucose 83, calcium 10.6. Urine tox screen was positive for benzodiazepines and marijuana. Patient previously had an outpatient prescription for Ativan 1mg QHS. EXAM: He is an alert, white male. He is ambulatory with a march. He has fair eye contact. His speech is regular rate and rhythm, then becomes loud and rapid. His affect is irritable and labile. His thoughts are tangential with occasional loose association. He denies auditory hallucinations. He denies thoughts to hurt himself or others. He describes his mood as "high as a kite." His insight is limited to poor. His judgment is impaired. His memory is limited to recent events. ASSESSMENT: 1. Bipolar disorder type 1, most recent episode manic, severe, without psychotic features. 2. Cannabis use disorder, severe. 3. Alcohol use disorder, in remission. Overall assessment: The patient has been having manic symptoms and was reportedly irritable and disorganized 1 week following a psychiatric hospitalization for more severe symptoms. The patient apparently has been using cannabis. The patient reportedly has been compliant with his medications , but has difficulty keeping track of them and reports he does not want to take Saphris anymore. PLAN OF TREATMENT: 1. The patient is on M1 hold for grave disability due to irritability, agitation, and disorganization. 2. The patient will be on assault awareness precautions on the unit as during his previous hospitalization last month he was menacing staff with clenched fists and made violent threats to kill staff during the hospitalization. The patient currently denies thoughts to hurt himself or others, however. 3. We will restart the patient's Synthroid 125 mcg daily. 4. We will restart the patient's lithium 300 mg t.i.d. 5. The patient is unwilling to take Saphris. Therefore, we will order Abilify 2 mg in the morning and Navane 5 mg at night. The patient reported he took this regimen for several years in the past; he is unwilling to retry scheduled Depakote or scheduled Zyprexa at this time. 6. We will restart gabapentin 300 mg h.s. for insomnia. 7. Will restart naltrexone at bedtime for history of alcoholism. 8. Ordered olanzapine disintegrating tablet 10 mg sublingual q.4 hours p.r.n. agitation. 9. Reorder patient's propranolol 10 mg b.i.d. for history of akathisia and history of tremor and borderline hypertension. 10. We will get a baseline electrocardiogram as the patient is on several psychiatric medications. Has a history of borderline hypertension and sleep apnea. 11. Ordered oxygen 2 L nasal cannula just to wear at night for sleep for history of sleep apnea. 12. Watch the patient's behavior, impulse control, and judgment on the unit. 13. I contacted the [facility] at [facility]. They confirmed the patient picked up a pillbox on February 18 of his medications. 14. Unable to reach the patient's brother, who apparently took the patient to the emergency room, for collateral information. 15. Unable to reach Dr. Archuleta at [facility] through the lockstitch front maker line. We will talk to the [facility] hospital liaison tomorrow at a team meeting regarding the patient's treatment recommendations from [facility]. 16. Order aspirin 81 mg a day for possible history of small vessel cerebrovascular disease. 17. We will check vital signs twice a day with a pulse oximetry while on the unit. 18. Provided education to patient about the dangers of cannabis ADDENDUM Spoke to brother Richard Whipple [phone] who called unit, brother reports patient was smoking cannabis, had loud and pressured speech, was irritable and verbally abusive to him and others and had disorganized and erratic behavior. No recent violence toward others or self-harming behaviors or specific threats to himself or others. Patient hasn't been caring for himself (showering, maintaining apartment, shopping for food). /[id number]/MODL MTDD
--- NOTE | 2017-02-25 14:48 | CPEKG ---
Heart Rate: 68 RR Interval: 882 P-R Interval: 204 QRSD Interval: 164 QT Interval: 448 QTC Interval: 477 P [place]: 44 QRS [place]: 31 T Wave [place]: 13 EKG Severity - ABNORMAL ECG - EKG Impression: SINUS RHYTHM EKG Impression: RIGHT BUNDLE BRANCH BLOCK Electronically Signed By: Ricardo Still 26-Feb-2017 08:49:34
[2017-02-25] MEDS: LITHIUM CARBONATE 300 MG CAP PO SCH ×2 (15:57→21:55)
[2017-02-25] MEDS: PROPRANOLOL HCL 10 MG TAB PO SCH (19:56)
[2017-02-25] MEDS: NALTREXONE HCL 50 MG TAB PO SCH (19:56)
[2017-02-25] MEDS ORDERED: GABAPENTIN 300 MG CAP PO SCH (21:00)
[2017-02-25] MEDS ORDERED: THIOTHIXENE 5 MG CAP PO SCH (21:00)
[2017-02-25] MEDS: OLANZapine DISINTEGR 10 MG TAB PO PRN (21:55)
[2017-02-26] MEDS: OLANZapine DISINTEGR 10 MG TAB PO PRN ×2 (03:09→11:09)
[2017-02-26] MEDS: ACETAMINOPHEN 325 MG TAB PO PRN (03:09)
[2017-02-26] MEDS: PROPRANOLOL HCL 10 MG TAB PO SCH ×2 (08:24→22:11)
[2017-02-26] MEDS: ASPIRIN EC 81 MG TAB PO SCH (08:24)
[2017-02-26] MEDS: NICOTINE POLACRILEX 2 MG GUM B PRN ×3 (08:24→22:10)
[2017-02-26] MEDS: LITHIUM CARBONATE 300 MG CAP PO SCH ×3 (08:24→22:11)
[2017-02-26] MEDS: ARIPiprazole 2 MG TAB PO SCH (08:24)
[2017-02-26] MEDS ORDERED: clonazePAM 1 MG TAB PO PRN (08:53)
--- NOTE | 2017-02-26 08:57 | SOAPPROG ---
SOAP Progress Note Assessment/Plan: Assessment: Bipolar Disorder, I, Manic severe with psychotic features Cannabis Use Disorder severe History of alcohol use disorder RBBB on EKG Sleep Apnea - on O2 2L NC at night Borderline type II diabetes History of borderline renal insufficiency Hypothyroidism - on synthroid Patient was hospitalized January 2017 for severe randi, violent and suicidal threats, grandiose delusions. Patient readmitted 02/25/17 on M-1 hold for manic symptoms and disorganization. Patient has continued reduced sleep, manic symptoms with disorganization and inappropriate behavior. Plan: Discontinue Navane. Discussed RBBB on EKG with patient. Continue [place] 300mg TID Increase Abilify 5mg QAM, discussed risk of sedation, EPS, NMS, akathisia, metabolic syndrome Change Klonopin 0.5mg BID PRN anxiety Continue Olanzapine ODT 10mg PRN agitation Continue Naltrexone 50mg QPM for history of alcohol use disorder Increase Gabapentin 600mg PO QHS for insomnia, discussed risk of sedation, delirium Monitor behavior, impulse control, judgment, sleep 02/26/17 09:05 Subjective: "I am high as a kite, I could be levitating down the massey" "Yeah I am irritable because you all are awful and don't know what you are doing" Patient is a poor historian but endorses continued mood swings, irritability, agitation, decreased sleep, and feeling distracted. Reports feeling mistreated by staff and patients and believes that he should be the treatment provider on the unit and lead groups. Denies constipation, diarrhea, abdominal pain, stiffness, or tremors. Reports dry mouth this AM. Reports 'there is a carnival in my mind, I am the clown and the ringleader.' Reports past severe weight gain from Depakote and Zyprexa and doesn't want to take either regularly ; reports not wanting to retry Saphris due to bad taste in mouth. Objective: Vital Signs Temp Pulse Resp BP Pulse Ox 36.3 C 82 15 139/83 H 98 02/25/17 07:54 02/25/17 19:56 02/25/17 10:01 02/25/17 19:56 02/25/17 10:01 Alert WM with march, coarse voice. Speech loud, pressured at times. Mood ' high as a kite, I could be levitating' Affect irritable, labile, euphoric at times. Thoughts tangential with occasional loose association. Denies SI or HI or AH. Some grandiose and paranoid content. Insight limited judgment questionable. EKG showed RBBB - discussed with patient Patient reportedly loud and disruptive in art group, ripped up papers and yelled at patients and staff. Nurses report patient agitated and verbally abusive (with rapid and loud speech) , numerous disorganized complaints, took 10mg Zydis at 300AM and Klonopin 1mg at 20:33 for insomnia and agitation. - Time Spent With Patient Time Spent With Patient: 30min - Pending Discharge Pending Discharge Within 24 Hours: No Pending Discharge Within 48 Hours: No ICD10 Worksheet Patient Problems: Problems Problem Status Onset Bipolar 1 disorder with moderate randi Acute Cannabis use disorder, moderate, dependence Acute Hypothyroid Acute Right bundle branch block Acute Sleep apnea Acute Bipolar disorder Acute Verbalizes suicidal thoughts Acute
[2017-02-26] MEDS: LEVOTHYROXINE 125 MCG TAB PO SCH (10:31)
[2017-02-26] MEDS: NALTREXONE HCL 50 MG TAB PO SCH (22:14)
[2017-02-26] MEDS: GABAPENTIN 300 MG CAP PO SCH (22:15)
[2017-02-27] MEDS: OLANZapine DISINTEGR 10 MG TAB PO PRN ×2 (03:09→23:54)
[2017-02-27] MEDS: LITHIUM CARBONATE 300 MG CAP PO SCH ×2 (08:36→22:06)
[2017-02-27] MEDS: ASPIRIN EC 81 MG TAB PO SCH (08:36)
[2017-02-27] MEDS: ARIPiprazole 2 MG TAB PO SCH (08:37)
[2017-02-27] MEDS: PROPRANOLOL HCL 10 MG TAB PO SCH ×2 (08:41→22:07)
--- NOTE | 2017-02-27 09:21 | SOAPPROG ---
SOAP Progress Note Assessment/Plan: Assessment: Bipolar Disorder, I, Manic severe with psychotic features Cannabis Use Disorder severe History of alcohol use disorder RBBB on EKG Sleep Apnea - on O2 2L NC at night Borderline type II diabetes History of borderline renal insufficiency Hypothyroidism - on synthroid Patient was hospitalized January 2017 for severe randi, violent and suicidal threats, grandiose delusions. Patient readmitted 02/25/17 on M-1 hold for manic symptoms and disorganization. Patient has continued reduced sleep, manic symptoms with disorganization and inappropriate behavior. Plan: Change [place] 300mg AM and 600mg QHS, check level 03/01 with BMP Continue Abilify 5mg QAM, restarted and increased since admit Continue Klonopin 0.5mg BID PRN Continue Olanzapine ODT 10mg PRN agitation Continue Naltrexone 50mg QPM for history of alcohol use disorder Continue Gabapentin 600mg PO QHS for insomnia Monitor behavior, impulse control, judgment, sleep, mood stability 02/27/17 09:21 Subjective: "Lets talk" "Coming down to earth, this is my stand up comedy for you and the patients" Patient reports reduced sleep overnight and continued racing thoughts. Endorses feeling irritable and agitated. Denies violent or suicidal thoughts. Reports he was yelling and disrupted at [facility] prior to admission. Denies stiffness or restlessness. Refuses to retry Depakote due past weight gain. Refuses to take Zyprexa scheduled due to past weight gain. Refuses to retry Saphris due to bad taste. Staff report yesterday patient was agitated and yelling profanity at others patients, got PRN Zydis yesterday mid-day as well as at 3AM today. Objective: Vital Signs Temp Pulse Resp BP Pulse Ox 36.6 C 84 16 124/69 H 97 02/27/17 03:00 02/27/17 08:41 02/27/17 03:00 02/27/17 08:41 02/27/17 03:00 Alert WM, disheveled, overweight. Mild restlessness. No tremors or slowing. Speech loud, pressured at times. Affect irritable, angry. Mood 'coming down to earth.' Thoughts tangential. Denies SI or HI or AH. 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 Poor insight, impaired judgment. - Time Spent With Patient Time Spent With Patient: 20 minutes - Pending Discharge Pending Discharge Within 24 Hours: No Pending Discharge Within 48 Hours: No ICD10 Worksheet Patient Problems: Problems Problem Status Onset Bipolar 1 disorder with moderate randi Acute Cannabis use disorder, moderate, dependence Acute Hypothyroid Acute Right bundle branch block Acute Sleep apnea Acute Bipolar disorder Acute Verbalizes suicidal thoughts Acute
[2017-02-27] MEDS: LEVOTHYROXINE 125 MCG TAB PO SCH (10:26)
[2017-02-27] MEDS: NALTREXONE HCL 50 MG TAB PO SCH (22:06)
[2017-02-27] MEDS: GABAPENTIN 300 MG CAP PO SCH (22:07)
[2017-02-28] MEDS: GABAPENTIN 300 MG CAP PO PRN (02:22)
[2017-02-28] MEDS: PROPRANOLOL HCL 10 MG TAB PO SCH ×2 (08:44→22:10)
[2017-02-28] MEDS: ARIPiprazole 2 MG TAB PO SCH (08:45)
[2017-02-28] MEDS: ASPIRIN EC 81 MG TAB PO SCH (08:45)
[2017-02-28] MEDS: LEVOTHYROXINE 125 MCG TAB PO SCH (08:45)
[2017-02-28] MEDS: LITHIUM CARBONATE 300 MG CAP PO SCH ×2 (08:45→18:05)
--- NOTE | 2017-02-28 13:20 | SOAPPROG ---
SOAP Progress Note Assessment/Plan: Assessment: Per Dr. Jaramillo's notes: Bipolar Disorder, I, Manic severe with psychotic features Cannabis Use Disorder severe History of alcohol use disorder RBBB on EKG Sleep Apnea - on O2 2L NC at night Borderline type II diabetes History of borderline renal insufficiency Hypothyroidism - on synthroid Patient was hospitalized January 2017 for severe randi, violent and suicidal threats, grandiose delusions. Patient readmitted 02/25/17 on M-1 hold for manic symptoms and disorganization. Patient has continued reduced sleep, manic symptoms with disorganization and inappropriate behavior. Plan: Change [place] 300mg AM and 600mg QHS, check level 03/01 with BMP Continue Abilify 5mg QAM, restarted and increased since admit Continue Klonopin 0.5mg BID PRN Continue Olanzapine ODT 10mg PRN agitation Continue Naltrexone 50mg QPM for history of alcohol use disorder Continue Gabapentin 600mg PO QHS for insomnia Monitor behavior, impulse control, judgment, sleep, mood stability Plan: 02/28/17 13:16 1. CCM - Patient not disruptive or irritable today. 2. Patient chose to try Abilify even though he had refused this med during past admission. He has refused most other antipsychotic/mood stabilizers including VPA, Zyprexa which have been helpful in past d/t unwanted SE's or "bad taste." 3. At the current time, patient does not demonstrate any sxs of randi or psychosis. Subjective: Met with patient, reviewed chart and d/w staff. Patient is calm, pleasant, seated at table. He is more cooperative and less irritable than during previous admission. He does not present agitated or hostile toward MD, staff or peers. He is participating in milieu activities and some groups. He denies any SI/HI, no AH/VH. Objective: Vital Signs Temp Pulse Resp BP Pulse Ox 36.2 C 63 16 112/75 97 02/28/17 03:54 02/28/17 03:54 02/28/17 03:54 02/28/17 03:54 02/28/17 03:54 MSE: Calm, pleasant, cooperative. Affect: Euthymic Mood: "OK" TP: Linear, goal-directed TC: Denies any SI/HI, no AH/VH, no paranoia Insight/Judgment: Fair - Time Spent With Patient Time Spent With Patient: 15" - Pending Discharge Pending Discharge Within 24 Hours: No Pending Discharge Within 48 Hours: No ICD10 Worksheet Patient Problems: Problems Problem Status Onset Bipolar 1 disorder with moderate randi Acute Cannabis use disorder, moderate, dependence Acute Hypothyroid Acute Right bundle branch block Acute Sleep apnea Acute Bipolar disorder Acute Verbalizes suicidal thoughts Acute
[2017-02-28] MEDS: GABAPENTIN 300 MG CAP PO SCH (22:09)
[2017-02-28] MEDS: NALTREXONE HCL 50 MG TAB PO SCH (22:09)
[2017-03-01] MEDS: OLANZapine DISINTEGR 10 MG TAB PO PRN (02:39)
[2017-03-01] MEDS: ARIPiprazole 2 MG TAB PO SCH (08:19)
[2017-03-01] MEDS: LITHIUM CARBONATE 300 MG CAP PO SCH ×2 (08:19→22:23)
[2017-03-01] MEDS: ASPIRIN EC 81 MG TAB PO SCH (08:19)
[2017-03-01] MEDS: PROPRANOLOL HCL 10 MG TAB PO SCH ×2 (08:20→22:20)
[2017-03-01 09:40] LABS: ANION GAP 11 mEq/L (8-16); CALCIUM 10.6 mg/dL (8.5-10.4); CARBON DIOXIDE 23 mEq/l (22-31); CHLORIDE 108 mEq/L (97-110); CREATININE 1.3 mg/dL (0.7-1.3); GLOMERULAR FILTRATION RATE 56; GLUCOSE 88 mg/dL (70-100); LITHIUM 0.8 mEq/L (0.6-1.2); POTASSIUM 4.5 mEq/L (3.5-5.2); SODIUM 142 mEq/L (134-144)
[2017-03-01] MEDS: LEVOTHYROXINE 125 MCG TAB PO SCH (10:56)
--- NOTE | 2017-03-01 12:25 | SOAPPROG ---
SOAP Progress Note Assessment/Plan: Assessment: Per Dr. Jaramillo's notes: Bipolar Disorder, I, Manic severe with psychotic features Cannabis Use Disorder severe History of alcohol use disorder RBBB on EKG Sleep Apnea - on O2 2L NC at night Borderline type II diabetes History of borderline renal insufficiency Hypothyroidism - on synthroid Patient was hospitalized January 2017 for severe randi, violent and suicidal threats, grandiose delusions. Patient readmitted 02/25/17 on M-1 hold for manic symptoms and disorganization. Patient has continued reduced sleep, manic symptoms with disorganization and inappropriate behavior. Plan: Change [place] 300mg AM and 600mg QHS, check level 03/01 with BMP Continue Abilify 5mg QAM, restarted and increased since admit Continue Klonopin 0.5mg BID PRN Continue Olanzapine ODT 10mg PRN agitation Continue Naltrexone 50mg QPM for history of alcohol use disorder Continue Gabapentin 600mg PO QHS for insomnia Monitor behavior, impulse control, judgment, sleep, mood stability Plan: 02/28/17 13:16 1. CCM - Patient not disruptive or irritable today. 2. Patient chose to try Abilify even though he had refused this med during past admission. He has refused most other antipsychotic/mood stabilizers including VPA, Zyprexa which have been helpful in past d/t unwanted SE's or "bad taste." 3. At the current time, patient does not demonstrate any sxs of randi or psychosis. 03/01/17 12:20 1. CCM - continues to improve 2. [place] level was 0.8 today. Elevated BUN and calcium. 3. Patient hesitant about d/c to [facility], but agrees it is probably "the best" option. Subjective: Met with patient, d/w staff. Patient says he is frustrated by specific peer, but has not reacted aggressively or become agitated. He goes to art group, listens to music or goes to his room to avoid getting angry. Patient says he is "on the fence" about going to [facility] because he works at [employer] and "knows patients there." But patient says, "I'd rather be there than in here." Patient says, "I'm coming down to earth" and reports he no longer "feels manic" but says he's "not 100% yet." MD encourages patient to consider [facility] as a good transition for him to get backup sawyer to 100%. He agrees. He denies any SI/ HI, no AH/VH. Objective: Vital Signs Temp Pulse Resp BP Pulse Ox 36.3 C 66 16 131/73 H 97 03/01/17 05:00 03/01/17 08:20 03/01/17 05:00 03/01/17 08:20 03/01/17 05:00 Laboratory Results 03/01/17 06:45 MSE: Pleasant, cooperative. Affect: Euthymic, irritable at times with certain peer Mood: "Better" TP: Linear, goal-directed TC: Denies any SI/HI, no AH/VH Insight/Judgment: Improved - Time Spent With Patient Time Spent With Patient: 20" - Pending Discharge Pending Discharge Within 24 Hours: No Pending Discharge Within 48 Hours: Yes Pending Discharge Date: 03/03/17 ([facility]) Pending Discharge Time: 11:00 ICD10 Worksheet Patient Problems: Problems Problem Status Onset Bipolar 1 disorder with moderate randi Acute Cannabis use disorder, moderate, dependence Acute Hypothyroid Acute Right bundle branch block Acute Sleep apnea Acute Bipolar disorder Acute Verbalizes suicidal thoughts Acute
[2017-03-01] MEDS: NALTREXONE HCL 50 MG TAB PO SCH (22:20)
[2017-03-01] MEDS: GABAPENTIN 300 MG CAP PO SCH (22:20)
[2017-03-02] MEDS: GABAPENTIN 300 MG CAP PO PRN (03:00)
[2017-03-02] MEDS: ACETAMINOPHEN 325 MG TAB PO PRN (05:31)
[2017-03-02] MEDS: LITHIUM CARBONATE 300 MG CAP PO SCH ×2 (08:40→21:57)
[2017-03-02] MEDS: LEVOTHYROXINE 125 MCG TAB PO SCH (08:41)
[2017-03-02] MEDS: ARIPiprazole 2 MG TAB PO SCH (08:41)
[2017-03-02] MEDS: PROPRANOLOL HCL 10 MG TAB PO SCH ×2 (08:43→21:57)
[2017-03-02] MEDS: ASPIRIN EC 81 MG TAB PO SCH (08:43)
--- NOTE | 2017-03-02 08:55 | SOAPPROG ---
SOAP Progress Note Assessment/Plan: Assessment: Bipolar Disorder, I, Manic severe with psychotic features Cannabis Use Disorder severe History of alcohol use disorder RBBB on EKG Sleep Apnea - on O2 2L NC at night Borderline type II diabetes History of borderline renal insufficiency Hypothyroidism - on synthroid Hypercalcemia - probably lithium related Patient was hospitalized January 2017 for severe randi, violent and suicidal threats, grandiose delusions. Patient readmitted 02/25/17 on M-1 hold for manic symptoms and disorganization. Now on short term certification. Patient has continued reduced sleep and some tangential/grandiose thinking but overall is more calm than previous. Patient unwilling to retry Saphris or take Zyprexa regularly Plan: Change [place] 300mg AM and 600mg QHS Increase Abilify 7.5mg QAM, discussed monitoring for stiffness, tremor, restlessness, sedation Continue Klonopin 0.5mg BID PRN Continue Olanzapine ODT 10mg PRN agitation Continue Naltrexone 50mg QPM for history of alcohol use disorder Continue Gabapentin 600mg PO QHS for insomnia Monitor behavior, impulse control, judgment, sleep, mood stability Discussed possible transition to [facility] later in week if calm and appropriate on unit and in groups 03/02/17 08:59 Subjective: "I am 98% of my spiritual leader" Patient reports over weekend staying calm 'most of the time' but admits to some continued agitation, irritability, and brief yelling. Denies any suicidal or violent thoughts over the weekend, denies paranoia or AH. Reports tolerating Abilify. Reports continued reduced sleep. Reports believing that if he is discharged he will climb a mountain 'so I can meditate and levitate.' Agreeable to discharge in the future to [facility] 'so I can show everyone that I am perfect.' Reports good visit with brother over the weekend, brother is caring for patients cat. Objective: Vital Signs Temp Pulse Resp BP Pulse Ox 36.3 C 67 16 108/72 97 03/02/17 05:00 03/02/17 05:00 03/02/17 05:00 03/02/17 05:00 03/02/17 05:00 Laboratory Results 03/01/17 06:45 Alert WM, disheveled. Mild extension tremor in hands. Speech loud, mild pressure. Thoughts tangential. Denies SI or HI. Mood '98% of my spiritual leader' Affect expansive, briefly irritable. Denies AH. Some grandiosity. Insight limited. Judgment questionable. Li 0.8 BMP WNL except Cr 1.3, Ca 10.6 Staff report over weekend patient loud, irritable, reduced sleep, took PRN Zydis 10mg at 2AM today. Staff report: no violent threats or behaviors over weekend, no suicidal threats or self-injurious behaviors over the weekend - Time Spent With Patient Time Spent With Patient: 30min - Pending Discharge Pending Discharge Within 24 Hours: No Pending Discharge Within 48 Hours: No ICD10 Worksheet Patient Problems: Problems Problem Status Onset Bipolar 1 disorder with moderate randi Acute Cannabis use disorder, moderate, dependence Acute Hypothyroid Acute Right bundle branch block Acute Sleep apnea Acute Bipolar disorder Acute Verbalizes suicidal thoughts Acute
[2017-03-02] MEDS ORDERED: ARIPiprazole 2 MG TAB PO SCH (09:00)
[2017-03-02] MEDS ORDERED: ARIPiprazole 5 MG TAB PO ONE (09:30)
[2017-03-02] MEDS: ARIPiprazole 5 MG TAB PO SCH (11:07)
[2017-03-02] MEDS: GABAPENTIN 300 MG CAP PO SCH (21:57)
[2017-03-02] MEDS: NALTREXONE HCL 50 MG TAB PO SCH (21:57)
[2017-03-03] MEDS: PROPRANOLOL HCL 10 MG TAB PO SCH ×2 (08:24→22:49)
[2017-03-03] MEDS: ASPIRIN EC 81 MG TAB PO SCH (08:24)
[2017-03-03] MEDS: LITHIUM CARBONATE 300 MG CAP PO SCH ×2 (08:24→22:50)
[2017-03-03] MEDS: ARIPiprazole 5 MG TAB PO SCH (08:24)
[2017-03-03] MEDS: LEVOTHYROXINE 125 MCG TAB PO SCH (09:36)
[2017-03-03] MEDS ORDERED: LORazepam 1 MG TAB PO PRN (11:49)
--- NOTE | 2017-03-03 11:54 | SOAPPROG ---
SOAP Progress Note Assessment/Plan: Assessment: Bipolar Disorder, I, Manic severe with psychotic features Cannabis Use Disorder severe History of alcohol use disorder RBBB on EKG Sleep Apnea - on O2 2L NC at night Borderline type II diabetes History of borderline renal insufficiency Hypothyroidism - on synthroid Hypercalcemia - probably lithium related Possible restless leg syndrome Patient was hospitalized January 2017 for severe randi, violent and suicidal threats, grandiose delusions. Patient readmitted 02/25/17 on M-1 hold for manic symptoms and disorganization. Now on short term certification. Patient was has some continued irritability and reduced sleep, but no inappropriate behaviors over past 24 hours and denies dangerous thoughts. Plan: Continue [place] 300mg AM and 600mg QHS Continue Abilify 7.5mg QAM, restarted and increased this admission Continue Naltrexone 50mg QPM for history of alcohol use disorder Increase Gabapentin 800mg PO QHS for insomnia and possible RLS Monitor behavior, impulse control, judgment, sleep, mood stability Continue PRN Olanzapine for agitation; change PRN clonazepam to PRN Ativan 1mg HS PRN insomnia Discussed possible transition to [facility] 03/05 if stable Reviewed dangers of cannabis and possible motivations for sobriety (mental and physical health, job) 03/03/17 11:58 Subjective: "I'm pretty good but some of the people around here are fucking idiots" Patient reports reduced sleep overnight, reports this is chronic. Denies feeling irritable or agitation or having racing thoughts but admits to briefly yelling at people the past few days. Denies violent or suicidal thoughts. Denies stiffness or weakness. Reports mild tremor in hands has been chronic for many years. Reports stiffness and restlessness in legs at night. Unsure if PRN 300mg Gabapentin and 1mg Ativan last night was helpful for insomnia. Reports in past taking Ativan 1 or 2mg HS for several years. Reports he is willing to go to [facility] for monitored medication compliance and monitored sobriety after discharge but is concerned about how this will affect his job. Reports he is not motivated to quit cannabis 'forever' but will consider not smoking cannabis for 'awhile' due to thoughts 'this was a doozy of a manic episode, I know that!" Agrees to allow care coordination with Dr. Archuleta. Reports in past gaining 40# in 6 months on Depakote and Zyprexa and unwilling to take either of these medications. Unwilling to take Saphris again due to bad taste. Unwilling to retry Risperdal. Objective: Vital Signs Temp Pulse Resp BP Pulse Ox 36.6 C 63 14 127/81 H 99 03/03/17 05:00 03/03/17 05:00 03/03/17 05:00 03/03/17 05:00 03/03/17 05:00 Laboratory Results 03/01/17 06:45 Alert WM with march. Mild extension tremor of hands. No slowing. Speech RRR, loud at times, brief profanity. Mood 'pretty good' Affect briefly irritable. Thoughts organized. Denies SI or violent thoughts or paranoia or AH. Insight limited. Judgment fair. Staff report on Thursday 03/01 was yelling profanity at nurse. Staff report yesterday patient was calm and appropriate in group, briefly irritable on unit at times but no dangerous behaviors or statements. 03/01: Li 0.8, BMP WNL except BUN 24, Ca 10.6 - Time Spent With Patient Time Spent With Patient: 30 minutes - Pending Discharge Pending Discharge Within 24 Hours: No Pending Discharge Within 48 Hours: Yes Pending Discharge Date: 03/05/17 Pending Discharge Time: 11:00 ICD10 Worksheet Patient Problems: Problems Problem Status Onset Bipolar 1 disorder with moderate randi Acute Cannabis use disorder, moderate, dependence Acute Hypothyroid Acute Right bundle branch block Acute Sleep apnea Acute Bipolar disorder Acute Verbalizes suicidal thoughts Acute
[2017-03-03] MEDS ORDERED: GABAPENTIN 400 MG CAP PO SCH (21:00)
[2017-03-03] MEDS: NALTREXONE HCL 50 MG TAB PO SCH (22:50)
[2017-03-04] MEDS: OLANZapine DISINTEGR 10 MG TAB PO PRN ×3 (02:05→14:16)
[2017-03-04] MEDS: ARIPiprazole 5 MG TAB PO SCH (09:04)
[2017-03-04] MEDS: ASPIRIN EC 81 MG TAB PO SCH (09:04)
[2017-03-04] MEDS: PROPRANOLOL HCL 10 MG TAB PO SCH ×2 (09:05→22:43)
[2017-03-04] MEDS: LITHIUM CARBONATE 300 MG CAP PO SCH ×2 (09:05→22:43)
[2017-03-04] MEDS: LEVOTHYROXINE 125 MCG TAB PO SCH (09:46)
--- NOTE | 2017-03-04 11:08 | SOAPPROG ---
SOAP Progress Note Assessment/Plan: Assessment: Bipolar Disorder, I, Manic severe with psychotic features Cannabis Use Disorder severe History of alcohol use disorder RBBB on EKG Sleep Apnea - on O2 2L NC at night Borderline type II diabetes History of borderline renal insufficiency Hypothyroidism - on synthroid Hypercalcemia - probably lithium related Possible restless leg syndrome Patient was hospitalized January 2017 for severe randi, violent and suicidal threats, grandiose delusions. Patient readmitted 02/25/17 on M-1 hold for manic symptoms and disorganization. Now on short term certification. Patient was has some continued severe irritability and reduced sleep. Plan: Continue N[place] 300mg AM and 600mg QHS Reduce Abilify 5mg QAM due to restlessness Continue Naltrexone 50mg QPM for history of alcohol use disorder Discontinue Gabapentin, start Depakote 500mg BID Monitor behavior, impulse control, judgment, sleep, mood stability Continue PRN Olanzapine ODT 10mg for agitation 03/04/17 11:06 Subjective: "I need to get out of here" Patient endorses feeling irritable and agitated and not sleeping much last night. Says "I am going crazy because I am here." Patient screams with clenched fists that he needs to be discharged. Staff report patient slept very little last night and was yelling and agitated frequently, got PRN Zydis 10mg Objective: Vital Signs Temp Pulse Resp BP Pulse Ox 36.8 C 71 14 131/78 H 94 03/04/17 05:00 03/04/17 05:00 03/04/17 05:00 03/04/17 05:00 03/04/17 05:00 Laboratory Results 03/01/17 06:45 - Time Spent With Patient Time Spent With Patient: 20 minutes - Pending Discharge Pending Discharge Within 24 Hours: No Pending Discharge Within 48 Hours: No ICD10 Worksheet Patient Problems: Problems Problem Status Onset Bipolar 1 disorder with moderate randi Acute Cannabis use disorder, moderate, dependence Acute Hypothyroid Acute Right bundle branch block Acute Sleep apnea Acute
[2017-03-04] MEDS: DIVALPROEX NA 500 MG TAB PO SCH ×2 (12:05→22:42)
[2017-03-04] MEDS: NALTREXONE HCL 50 MG TAB PO SCH (22:43)
[2017-03-05] MEDS: DIVALPROEX NA 500 MG TAB PO SCH ×2 (08:53→22:05)
[2017-03-05] MEDS: LITHIUM CARBONATE 300 MG CAP PO SCH ×2 (08:53→22:06)
[2017-03-05] MEDS: ASPIRIN EC 81 MG TAB PO SCH (08:54)
[2017-03-05] MEDS: PROPRANOLOL HCL 10 MG TAB PO SCH ×2 (08:54→22:05)
[2017-03-05] MEDS: ARIPiprazole 5 MG TAB PO SCH (08:54)
[2017-03-05] MEDS: LEVOTHYROXINE 125 MCG TAB PO SCH (11:07)
--- NOTE | 2017-03-05 12:31 | SOAPPROG ---
SOAP Progress Note Assessment/Plan: Assessment: Bipolar Disorder, I, Manic severe with psychotic features Cannabis Use Disorder severe History of alcohol use disorder RBBB on EKG Sleep Apnea - on O2 2L NC at night Borderline type II diabetes History of borderline renal insufficiency Hypothyroidism - on synthroid Hypercalcemia - probably lithium related Possible restless leg syndrome Patient was hospitalized January 2017 for severe randi, violent and suicidal threats, grandiose delusions. Patient readmitted 02/25/17 on M-1 hold for manic symptoms and disorganization. Now on short term certification. Patient was has some continued irritability and expansive affect and reduced sleep but overall appears less tangential and less pressured today. Plan: Continue [place] 300mg AM and 600mg QHS Continue Abilify 5mg Continue Depakote 500mg BID, check level 03/08/17 with LFTs, BMP Continue Naltrexone 50mg QPM for history of alcohol use disorder Discontinue Gabapentin Monitor behavior, impulse control, judgment, sleep, mood stability Continue PRN Olanzapine ODT 10mg for agitation 03/05/17 12:31 03/05/17 12:33 Subjective: "I"m above excellent, ready to go" Patient reports tolerating Depakote without side effects. Reports reduced sleep. Reports some reduced anxiety and reduced irritability since starting Depakote. Reports his goal is to return to apartment. Reports goal is 'to feel more calm inside and outside and stay cool.' Objective: Vital Signs Temp Pulse Resp BP Pulse Ox 36.6 C 75 16 123/73 H 98 03/05/17 07:08 03/05/17 08:54 03/05/17 07:08 03/05/17 08:54 03/05/17 07:08 Laboratory Results 03/01/17 06:45 Alert WM with march. Cooperative. Briefly irritable and agitated, brief yelling. Thoughts organized and less tangential than previous. Reports mood ' above excellent.' Denies AH or SI or HI or paranoia. Limited insight. Questionable judgment. Staff report patient left group yesterday and slammed door, briefly yelling at staff. Got Zydis 10mg at 14:15 yesterday. Patient slept 4 hours, compliant with Depakote, [place], Abilify - Time Spent With Patient Time Spent With Patient: 30 minutes - Pending Discharge Pending Discharge Within 24 Hours: No Pending Discharge Within 48 Hours: No ICD10 Worksheet Patient Problems: Problems Problem Status Onset Bipolar 1 disorder with moderate randi Acute Cannabis use disorder, moderate, dependence Acute Hypothyroid Acute Right bundle branch block Acute Sleep apnea Acute
[2017-03-05] MEDS: NALTREXONE HCL 50 MG TAB PO SCH (22:05)
[2017-03-06] MEDS: OLANZapine DISINTEGR 10 MG TAB PO PRN ×2 (01:29→14:24)
[2017-03-06] MEDS: DIVALPROEX NA 500 MG TAB PO SCH (08:41)
[2017-03-06] MEDS: LITHIUM CARBONATE 300 MG CAP PO SCH ×2 (08:42→22:25)
[2017-03-06] MEDS: PROPRANOLOL HCL 10 MG TAB PO SCH ×2 (08:42→22:25)
[2017-03-06] MEDS: ARIPiprazole 5 MG TAB PO SCH (08:42)
[2017-03-06] MEDS: ASPIRIN EC 81 MG TAB PO SCH (08:42)
--- NOTE | 2017-03-06 11:03 | SOAPPROG ---
SOAP Progress Note Assessment/Plan: Assessment: Bipolar Disorder, I, Manic severe Cannabis Use Disorder severe History of alcohol use disorder RBBB on EKG Sleep Apnea - on O2 2L NC at night Borderline type II diabetes History of borderline renal insufficiency Hypothyroidism - on synthroid Hypercalcemia - probably lithium related Possible restless leg syndrome or akathisia from Abilify Patient was hospitalized January 2017 for severe randi, violent and suicidal threats, grandiose delusions. Patient readmitted 02/25/17 on M-1 hold for manic symptoms and disorganization. Now on short term certification. Patient was has some continued irritability, loud speech, difficulty tolerating groups, reduced sleep, but is less pressured, less tangential. Plan: Continue [place] 300mg AM and 600mg QHS Reduce Abilify 2.5mg Change Depakote 1000mg QHS, check level 03/08/17 with LFTs, BMP, lithium level Continue Naltrexone 50mg QPM for history of alcohol use disorder Monitor behavior, impulse control, irritability, ability to tolerate groups Continue PRN Olanzapine ODT 10mg for agitation Possible discharge home Thursday if calm over weekend and doing well in groups; if not stable over weekend will refer to [facility] 03/06/17 11:03 Subjective: "I am ready to go" Patient reports feeling restless on unit, reports improved sleep but continued reduced amount of sleep since starting Depakote. Reports good appetite. Denies violent or suicidal thoughts. Reports another patient ' is making me crazy I am losing my mind I need to get away from her.' Reports he would prefer to return to apartment rather than go to [facility] after discharge. Endorses feeling irritable and angry and feeling distracted. Objective: Vital Signs Temp Pulse Resp BP Pulse Ox 36.2 C 67 16 114/86 H 95 03/06/17 06:21 03/06/17 08:42 03/06/17 06:21 03/06/17 08:42 03/05/17 19:00 Laboratory Results 03/01/17 06:45 Alert WM with march. Ambulatory, appears restless with pacing at times. Mild extension tremor. Speech loud, less pressure and less rapid than previous. Thoughts organized. Affect irritable. Mood 'ready to go' Denies SI or HI or AH. Insight limited. judgment appropriate. Staff report patient slept 6.5 hours with PRN Zydis 10mg at 1:30AM Staff report patient briefly irritable in group and only able to tolerate 5-10 minutes in groups. Brother visited. Eating well on unit. Brief yelling with irritable in response to a disruptive patient but no violence or dangerous statements or behaviors. - Time Spent With Patient Time Spent With Patient: 30 minutes - Pending Discharge Pending Discharge Within 24 Hours: No Pending Discharge Within 48 Hours: No ICD10 Worksheet Patient Problems: Problems Problem Status Onset Bipolar 1 disorder with moderate randi Acute Cannabis use disorder, moderate, dependence Acute Hypothyroid Acute Right bundle branch block Acute Sleep apnea Acute
[2017-03-06] MEDS: LEVOTHYROXINE 125 MCG TAB PO SCH (12:21)
[2017-03-06] MEDS ORDERED: THIOTHIXENE 5 MG CAP PO SCH (14:15)
[2017-03-06] MEDS ORDERED: BENZTROPINE MESYLATE 1 MG TAB PO PRN (14:22)
[2017-03-06] MEDS: THIOTHIXENE 5 MG CAP PO SCH ×2 (14:24→22:25)
[2017-03-06] MEDS ORDERED: LORazepam 1 MG TAB PO PRN (14:28)
[2017-03-06] MEDS ORDERED: DIVALPROEX NA 500 MG TAB PO SCH (21:00)
[2017-03-06] MEDS: NALTREXONE HCL 50 MG TAB PO SCH (22:25)
[2017-03-07] MEDS: OLANZapine DISINTEGR 10 MG TAB PO PRN ×2 (03:48→20:35)
[2017-03-07] MEDS: LEVOTHYROXINE 125 MCG TAB PO SCH (09:52)
[2017-03-07] MEDS: ASPIRIN EC 81 MG TAB PO SCH (09:52)
[2017-03-07] MEDS: LITHIUM CARBONATE 300 MG CAP PO SCH ×2 (09:52→22:50)
[2017-03-07] MEDS: PROPRANOLOL HCL 10 MG TAB PO SCH ×2 (09:52→22:50)
[2017-03-07] MEDS: THIOTHIXENE 5 MG CAP PO SCH ×2 (09:56→22:50)
[2017-03-07] MEDS ORDERED: ARIPiprazole 5 MG TAB PO SCH ×2 (11:04)
--- NOTE | 2017-03-07 13:34 | SOAPPROG ---
SOAP Progress Note Assessment/Plan: Assessment: Per Dr. Jaramillo's notes: Patient now reports he is unwilling to take Depakote. Says that he feels worse mentally. Reports he doesn't want to take Abilify, Saphris, or Risperdal, has allergy to Tegretol, history of adverse symptoms from Geodon, won't take Zyprexa regularly due to past weight gain. Reports he is only willing to take Navane and [place]. Discussed risk of Navane causing EPS, Tardive Dyskinesia, and fatal cardiac rhythm disturbance with [place]; discussed that patient has RBBB on EKG. Patient unwilling to have an ECT referral and repeatedly requests Navane. Plan: Discontinue Depakote and Abilify, patient doesn't want to take Continue [place], check level 03/08 with BMP Start Navane 5mg BID. If taking for >48 hours will order repeat EKG Continue Olanzapine ODT 10mg PRN agitation 03/07/17 13:30 1. Patient more irritable today b/c he wants to be discharged. 2. [facility] - Dr. Jaramillo d/c'd VPA and started Navane on 03/06/17. Patient denies any SE's or complaints. No s/s of EPS. Subjective: Met with patient, reviewed chart and d/w staff. Patient is angry today b/c he says, "I'm frustrated being here" and says, "I've been here 10 days too long...I want to go home." MD tried to explain to patient that recent med changes require further days for observation to make sure he is benefiting from meds and not having any adverse SE's. He says "I know that." He admits he is the one who refused to continue on Depakote and requested Dr. Jaramillo put him back on Navane despite RBBB on EKG in past. He know Dr. Jaramillo requested [place] level on Thu and EKG on Thu. Patient says he is willing to stay here through weekend, but wants to be discharged on Thursday. He really doesn't want to "be here on ." He denied any SI/HI, no AH/VH. Objective: Vital Signs Temp Pulse Resp BP Pulse Ox 36.8 C 65 12 124/78 H 93 03/07/17 06:00 03/07/17 06:00 03/07/17 06:00 03/07/17 06:00 03/07/17 06:00 Laboratory Results 03/01/17 06:45 MSE: Irritable, easily frustrated. Affect: Irritable, angry Mood: "Frustrated " TP: Linear, goal-directed TC: Denies any SI/HI, no AH/VH Insight/Judgment: Poor - Time Spent With Patient Time Spent With Patient: 20" - Pending Discharge Pending Discharge Within 24 Hours: No Pending Discharge Within 48 Hours: No ICD10 Worksheet Patient Problems: Problems Problem Status Onset Bipolar 1 disorder with moderate randi Acute Cannabis use disorder, moderate, dependence Acute Hypothyroid Acute Right bundle branch block Acute Sleep apnea Acute
[2017-03-07] MEDS: NALTREXONE HCL 50 MG TAB PO SCH (22:50)
[2017-03-08] MEDS: OLANZapine DISINTEGR 10 MG TAB PO PRN (02:16)
[2017-03-08 06:14] VITALS: RESP 14
[2017-03-08] MEDS: PROPRANOLOL HCL 10 MG TAB PO SCH ×2 (08:11→22:48)
[2017-03-08] MEDS: THIOTHIXENE 5 MG CAP PO SCH ×2 (08:11→22:48)
[2017-03-08] MEDS: ASPIRIN EC 81 MG TAB PO SCH (08:11)
[2017-03-08] MEDS: LITHIUM CARBONATE 300 MG CAP PO SCH ×2 (08:11→22:48)
[2017-03-08 09:47] LABS: ANION GAP 10 mEq/L (8-16); CALCIUM 10.1 mg/dL (8.5-10.4); CARBON DIOXIDE 26 mEq/l (22-31); CHLORIDE 108 mEq/L (97-110); CREATININE 1.2 mg/dL (0.7-1.3); GLOMERULAR FILTRATION RATE > 60; GLUCOSE 71 mg/dL (70-100); LITHIUM 0.9 mEq/L (0.6-1.2); POTASSIUM 4.1 mEq/L (3.5-5.2); SODIUM 144 mEq/L (134-144)
[2017-03-08] MEDS: LEVOTHYROXINE 125 MCG TAB PO SCH (11:11)
--- NOTE | 2017-03-08 13:09 | SOAPPROG ---
SOAP Progress Note Assessment/Plan: Assessment: Per Dr. Jaramillo's notes: Patient now reports he is unwilling to take Depakote. Says that he feels worse mentally. Reports he doesn't want to take Abilify, Saphris, or Risperdal, has allergy to Tegretol, history of adverse symptoms from Geodon, won't take Zyprexa regularly due to past weight gain. Reports he is only willing to take Navane and [place]. Discussed risk of Navane causing EPS, Tardive Dyskinesia, and fatal cardiac rhythm disturbance with [place]; discussed that patient has RBBB on EKG. Patient unwilling to have an ECT referral and repeatedly requests Navane. Plan: Discontinue Depakote and Abilify, patient doesn't want to take Continue [place], check level 03/08 with BMP Start [place]ane 5mg BID. If taking for >48 hours will order repeat EKG Continue Olanzapine ODT 10mg PRN agitation 03/07/17 13:30 1. Patient more irritable today b/c he wants to be discharged. 2. [facility] - Dr. Jaramillo d/c'd VPA and started Navane on 03/06/17. Patient denies any SE's or complaints. No s/s of EPS. 03/08/17 13:06 1. Patient less irritable, but still "frustrated" b/c he wants to leave hospital. 2. [place] level was 0.9 this AM. 3. Denies any SE's from Navane, no s/s of EPS. 4. EKG tomorrow Subjective: Met with patient, reviewed chart and d/w staff. Patient still feels "frustrated " b/c he thinks he's been in hospital "too long." explained that whenever medications are changed, it's hunter to allow appropriate amount of time to observe patient and make sure he is benefitting from treatment. He says, "I know that." Patient understands the r/b/se's associated with Navane, especially risk of adverse cardiac events and CVA. He wants to stay on it. Objective: Vital Signs Temp Pulse Resp BP Pulse Ox 36.8 C 73 14 126/80 H 98 03/08/17 06:14 03/08/17 06:14 03/08/17 06:14 03/08/17 06:14 03/08/17 06:14 Laboratory Results 03/08/17 05:20 MSE: Affect: Euthymic, less irritable Mood: "OK" TP: Linear TC: Denies any SI /HI, no AH/VH Insight/Judgment: Poor - Time Spent With Patient Time Spent With Patient: 15" - Pending Discharge Pending Discharge Within 24 Hours: No Pending Discharge Within 48 Hours: No ICD10 Worksheet Patient Problems: Problems Problem Status Onset Bipolar 1 disorder with moderate randi Acute Cannabis use disorder, moderate, dependence Acute Hypothyroid Acute Right bundle branch block Acute Sleep apnea Acute
[2017-03-08] MEDS: NALTREXONE HCL 50 MG TAB PO SCH (22:49)
[2017-03-09] MEDS: OLANZapine DISINTEGR 10 MG TAB PO PRN (01:27)
[2017-03-09 05:57] VITALS: BP 131/87; PULSE 68; TEMP 97.3; O2SAT 92
--- NOTE | 2017-03-09 08:39 | SOAPPROG ---
SOAP Progress Note Assessment/Plan: Assessment: Bipolar Disorder, I, Manic severe Cannabis Use Disorder severe History of alcohol use disorder RBBB on EKG Sleep Apnea - on O2 2L NC at night Borderline type II diabetes History of borderline renal insufficiency Hypothyroidism - on synthroid Patient was hospitalized January 2017 for severe randi, violent and suicidal threats, grandiose delusions. Patient readmitted 02/25/17 on M-1 hold for manic symptoms and disorganization. Now on short term certification. Patient has reduced sleep but is calm and appropriate this AM. No signs of EPS from Navane. Plan: Continue [place] 300mg AM and 600mg QHS Continue [place] 5mg BID Start Colace for constipation Recheck EKG Continue Naltrexone 50mg QPM for history of alcohol use disorder Continue Propranolol Discharge this afternoon if continuing to stay calm and act appropriately in groups and on unit 03/09/17 08:39 Subjective: "Good and back to normal" Patient reports tolerating Navane but has dry mouth and possibly constipation. No stiffness or tremors. Reports he is willing to take psychiatric medications regularly and follow up with Dr. Archuleta at [facility]. Denies any thoughts to harm self or others. Agreeable to have repeat EKG. Reports poor sleep due to sleep apnea. Reports goal is to return to apartment, spend holiday with siblings and cat, and possibly return to work. Objective: Vital Signs Temp Pulse Resp BP Pulse Ox 36.3 C 68 14 131/87 H 92 03/09/17 05:56 03/09/17 05:56 03/09/17 05:56 03/09/17 05:56 03/09/17 05:56 Laboratory Results 03/08/17 05:20 Alert WM, march, cooperative, calm. Speech RRR, loud at times. Thoughts organized, occasionally tangential. Denies SI or HI. Mood 'good and back to normal' Affect euthymic. Limited insight, appropriate judgment. Staff report patient cooperative with medications. Yesterday was calm and able to go to groups consistently without severe irritability or any disruptive or inappropriate behavior. Li 0.9. BMP WNL - Time Spent With Patient Time Spent With Patient: 35 minutes - Pending Discharge Pending Discharge Within 24 Hours: Yes Pending Discharge Date: 03/09/17 Pending Discharge Time: 14:00 ICD10 Worksheet Patient Problems: Problems Problem Status Onset Bipolar 1 disorder with moderate randi Acute Cannabis use disorder, moderate, dependence Acute Hypothyroid Acute Right bundle branch block Acute Sleep apnea Acute
[2017-03-09] MEDS ORDERED: DOCUSATE SODIUM 100 MG CAP PO SCH (09:00)
[2017-03-09] MEDS: LITHIUM CARBONATE 300 MG CAP PO SCH (09:27)
[2017-03-09] MEDS: ASPIRIN EC 81 MG TAB PO SCH (09:27)
[2017-03-09] MEDS: PROPRANOLOL HCL 10 MG TAB PO SCH (09:28)
[2017-03-09] MEDS: THIOTHIXENE 5 MG CAP PO SCH (09:31)
[2017-03-09] MEDS: LEVOTHYROXINE 125 MCG TAB PO SCH (10:54)
--- NOTE | 2017-03-09 11:27 | CPEKG ---
Heart Rate: 57 RR Interval: 1053 P-R Interval: 204 QRSD Interval: 174 QT Interval: 460 QTC Interval: 448 P Taft: 9 QRS Taft: 12 T Wave [place]: 4 EKG Severity - ABNORMAL ECG - EKG Impression: SINUS RHYTHM EKG Impression: RIGHT BUNDLE BRANCH BLOCK Electronically Signed By: Ricardo Still 09-Mar-2017 11:38:33
--- NOTE | 2017-03-09 14:01 | BDS ---
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 He lives alone in an apartment with a cat and receives Social Security Disability. He has no children; several of his siblings live in the [place] area. He is in outpatient treatment with Dr. Archuleta at [facility] [employer] [facility]. The patient was hospitalized at [facility] in January 2017 for a manic episode. ADMISSION DIAGNOSES: Bipolar disorder type 1, most recent episode manic, severe. Cannabis use disorder. BRIEF PSYCHIATRIC HISTORY: The patient had a history of approximately 10 past psychiatric hospitalizations in the [facility] near [facility], between ages of 17 and 35 for symptoms of bipolar disorder including 1 of them for a Valium overdose and several of them for manic symptoms. The patient apparently had been stable for many years. He reportedly decompensated in December 2016, while working at [employer] [facility] [employer] as a control specialist, concurrent with their computer system medical record change. The patient was hospitalized at [facility] in January 2017 for severe randi with grandiose delusions and paranoid delusions. During that hospitalization, the patient had seclusion episodes for making terroristic and violent threats to kill staff. During the hospitalization, the patient also threatened suicide with thoughts of jumping off a bridge and had grandiose delusions. He was stabilized on Saphris 20mg SL BID and Laredo 300mg TID. After that discharge, the patient apparently went back to his apartment. He was not compliant with the Saphris with a complaint of a bad taste with the SL tablets. He was compliant with his Laredo, but returned to smoking cannabis, however. The patient has a long history of daily cannabis abuse. He also has a history of past alcohol binging. REASON FOR ADMISSION: The patient apparently was loud and disruptive at a drop- in center for [employer] [facility] [employer]. He was taken to the emergency room by his brother. The patient was admitted on M1 hold for grave disability due to manic symptoms. In the emergency department, he received up to 20 mg of Zyprexa as well as some doses of Ativan and Seroquel. INITIAL EXAM: Patient was initially an ambulatory white male with a march. He was psychomotor agitated with loud, rapid and pressured speech, tangential thinking, grandiosity. Denied thoughts to hurt himself or others. He had an irritable and agitated affect. He described his mood as "upset and manic". His thoughts were tangential. His memory was fair. His insight was poor. His judgment was impaired. HOSPITAL COURSE: The patient was admitted for recurrence of manic symptoms. He apparently had been disruptive, loud and agitated in the community. The patient reported that after the discharge from the recent hospitalization, he stopped taking Saphris because he did not like the taste. He reported he continued taking his lithium. He returned to smoking cannabis. He endorsed having racing thoughts, irritability, poor sleep, and was feeling agitated. The patient wanted to go back on either Abilify or Navane, which he had taken previously. The patient was initially started on Abilify 2.5 mg, then 5 mg, then 7.5 mg. The patient continued to have manic symptoms and he was loud, disruptive, irritable, had difficulty sitting through groups. He would frequently yell profanity at staff and at other patients and was intrusive and inappropriate at the nurses station. However, he never required seclusion or restraints and never made any violent or suicidal statements. He was cooperative with oral medications. He did take p.r.n. Ativan and p.r.n. Zyprexa Zydis several times for agitation and reduced sleep. He was given oxygen for his history of sleep apnea; he was given 2 L nasal cannula at bedtime. The patient was kept on his Synthroid for hypothyroidism 125 mcg daily. He was continued on propranolol 10 mg twice daily for his history of lithium-related tremor. The patient was kept on aspirin 81 mg daily for history of a possible small vessel cerebrovascular accident many years ago. He was kept on naltrexone 50 mg at night for his history of alcohol abuse. The patient had an EKG in the emergency room, which showed a right bundle branch block. The patient was notified of this. The patient continued Laredo during the hospitalization, 300mg in AM and 600mg in PM. The patient did not clearly improve with the increase of Abilify up to 7.5 mg, and may have developed some akathisia and a worsening tremor. The patient was eventually agreeable to start Depakote at night. The patient tolerated this initially, but then reported he felt like he was having increased anxiety from Depakote and would not take it. The patient reports numerous side effects to numerous mood stabilizer medications, and would not take numerous alternative mood stabilizer medications. Of note, the patient has a history of an allergy to Tegretol. He also has a history of extrapyramidal side effects from Haldol and Prolixin. The patient reports a history of weight gain with a combination of Zyprexa and Depakote. He does report some benefit from Zyprexa, but does not want to take it due to history of weight gain. He also declined to retry Risperdal, Geodon, or Latuda. Patient was informed that ECT was an alternative option for the treatment of randi, but the patient yelled profanity at this M.D. and then walked away when I attempted to discuss the possible benefit. The patient later demanded to restart Navane. The patient was previously on between 2 and 6 mg; but due to the severity of the patient's symptoms, he was started on 5 mg twice daily on Thursday, February 03. The patient tolerated this medication without any extrapyramidal side effects or slowing. The patient had a marked improvement in his behavior and affect. The patient was much more calm, much more organized. He was able to sit through groups. He was less irritable with staff, more patient with redirection, and was less angry and irritable with other loud patients on the unit. He also was more appropriate in groups, and he developed better insight. The patient was continued on his lithium 300 mg in the morning and 600 mg at night. During the course of hospitalization, the patient repeatedly denied any thoughts to hurt himself or others. He also denied auditory hallucinations, as well. He had several visits from his brothers during the hospitalization. CONSULTATIONS: The patient was seen by the hospitalist for a baseline physical exam. The patient had an EKG in the emergency room that showed a right bundle branch block with a heart rate of 68, QTc interval of 477. The patient had a repeat EKG on the day of discharge, after he had been on Navane for 4 days; that also showed right bundle branch block with a heart rate of 57, had a QTc interval of 448 msec. The patient was notified of this and was agreeable to get medical followup after discharge. Patient had a normal BMP with a lithium level of 0.9 and a normal TSH during the hospitalization; his glucose was in the normal range and his calcium was borderline elevated 10.2. CONDITION AT DISCHARGE: He is an alert white male in no acute distress, with a march. He is ambulatory, cooperative, pleasant, no acute distress. His speech is regular rate and rhythm. His mood is "pretty good." His affect is euthymic and pleasant. His thoughts are organized with good detail. He denies any thoughts to hurt himself or others. His memory is fair. His insight is fair. His judgment is appropriate. DISCHARGE DIAGNOSES: Bipolar Disorder, I, Manic, Severe without psychotic features Cannabis Use Disorder, severe History of Alcohol Use Disorder History of Bipolar Disorder WITH psychotic features Hypothyroidism Sleep Apnea History of small vessel CVA per patient report Right Bundle Branch Block History of borderline hypercalcemia and borderline type II diabetes DISCHARGE MEDICATIONS: Propranolol 10 mg p.o. twice daily, Aspirin 81 mg p.o. daily, Laredo 300 mg p.o. q.a.m. and 600 mg p.o. at bedtime Naltrexone 50 mg p.o. at bedtime, Navane 5 mg p.o. twice daily, Levothyroxine 125 mcg p.o. daily. Ativan 1 mg p.o. at bedtime p.r.n. insomnia. but will only get a prescription for 7 tablets, no refills, of Ativan. Prescriptions for Navane and Laredo were written for patient to picker/puller weekly pillboxes at [facility]. DISPOSITION: The patient was picked up by one of his brothers, and will be returning to live alone in his apartment. He receives Social Security benefits and support from several siblings in the area. FOLLOWUP: The patient refused a referral to [facility] for medication monitoring and support after discharge. The patient has followup appointments with Dr. Archuleta there, and will go to 1 of the clinics to picker/puller his pill box upon discharge. LEGAL STATUS: The patient was admitted on M1 hold for grave disability, and then placed on short-term certification. This will be terminated, so the patient can receive outpatient treatment on a voluntary basis. /[id number]/MODL MTDD
== END 2017-03-09 13:50 | disposition home or self-care (01) | DRG 885 ==
LOC: BBEH 02-25 09:10
PROVIDERS: ADMIT Psychiatry & Neurology Psychiatry
DX: F31.13 Bipolar disorder, current episode manic without psychotic features, severe (principal); F12.90 Cannabis use, unspecified, uncomplicated; G47.30 Sleep apnea, unspecified; R73.03 Prediabetes; E03.9 Hypothyroidism, unspecified; E83.52 Hypercalcemia; I45.10 Unspecified right bundle-branch block; G25.81 Restless legs syndrome
CPT/HCPCS: 80305; G0480

== ENCOUNTER → 2017-10-29 | Outpatient (CLI) | payer OTHER, MEDICAID | LOC: BMCIMAGING 16:44 | PROVIDERS: ATTEND Internal Medicine | DX: M19.012 Primary osteoarthritis, left shoulder (principal); M25.711 Osteophyte, right shoulder; M25.561 Pain in right knee; M25.562 Pain in left knee; Z87.828 Personal history of other (healed) physical injury and trauma ==

== ENCOUNTER → 2017-11-15 | Outpatient (CLI) | payer OTHER, MEDICAID | LOC: FIMAGING 12:41 | PROVIDERS: ATTEND Orthopaedic Surgery | DX: Z53.09 Procedure and treatment not carried out because of other contraindication (principal); M25.511 Pain in right shoulder ==

== ENCOUNTER → 2018-04-16 | Outpatient (CLI) | payer OTHER, MEDICAID | LOC: FIMAGING 11:07 | PROVIDERS: ATTEND Psychiatry & Neurology Psychiatry | DX: E21.3 Hyperparathyroidism, unspecified (principal) | CPT/HCPCS: 78070; A9500 ==

== ENCOUNTER 2018-04-21 15:28 | Emergency (ER) | payer OTHER, MEDICAID ==
[2018-04-21 16:12] LABS: PLATELET COUNT 156 10^3/uL (150-400)
--- NOTE | 2018-04-21 17:03 | EDPHY ---
H & P Time Seen by Provider: 04/21/18 16:01 HPI/ROS: CHIEF COMPLAINT: Shortness of breath HISTORY OF PRESENT ILLNESS: The patient is a 62-year-old male with a history of psychiatric disease and obstructive sleep apnea who presents emergency department. Patient states symptoms have been present for 6 months. He denies cough or fever. No chest pain. The patient has had no nausea vomiting. No leg pain or swelling. The patient states his symptoms are worse at night. Sometimes he feels he needs to jump out of bed although his oxygen for obstructive sleep apnea improved his symptoms. REVIEW OF SYSTEMS: 10 systems were reveiwed and are negative with the exception of the elements mentioned in the history of present illness. Past Medical/Surgical History: Psychiatric disease Social history: Patient does not smoke Smoking Status: Former smoker Physical Exam: Vitals noted. 36.4, 118/81, 64, 18, 96% on room air GENERAL: Well-appearing, in no acute distress, alert. HEENT: Eyes normal to inspection, normal pharynx, no signs of dehydration. NECK: Normal, supple. RESPIRATORY: Clear to auscultation bilaterally, no rales, rhonchi or wheezing. CVS: Regular rate and rhythm, no rubs, murmurs, or gallops. ABDOMEN: Soft, nontender, nondistended, no organomegaly. BACK: Normal to inspection, no CVA tenderness. SKIN: Normal color, no rash, warm, dry. No pallor. EXTREMITIES: No pedal edema, no calf tenderness, no Homans sign or cords, no joint swelling. NEURO/PSYCH: Alert and oriented, normal mood and affect, normal motor sensory exam. No obvious cranial nerve deficit. Constitutional: Initial Vital Signs Temperature (C) 36.4 C 04/21/18 15:36 Heart Rate 64 04/21/18 15:36 Respiratory Rate 18 04/21/18 15:36 Blood Pressure 118/81 H 04/21/18 15:36 O2 Sat (%) 96 04/21/18 15:36 O2 Delivery Mode Room Air Allergies/Adverse Reactions: carbamazepine [From Tegretol] Allergy (Verified 04/21/18 15:36) fluphenazine enanthate [From Prolixin] Allergy (Verified 04/21/18 15:36) fluphenazine HCl [From Prolixin] Allergy (Verified 04/21/18 15:36) haloperidol [From Haldol] Allergy (Verified 04/21/18 15:36) haloperidol lactate [From Haldol] Allergy (Verified 04/21/18 15:36) "all pain killers" Allergy (Uncoded 04/02/14 15:18) "don't do well on me" Home Medications: Medication Instructions Recorded Aspirin EC [Aspirin EC 81 mg (*)] 81 mg PO DAILY tab 03/09/17 Docusate Sodium [Colace 100 MG (*)] 100 mg PO BID PRN #30 cap 03/09/17 LORazepam [Ativan (*)] 1 mg PO HS PRN #7 tab 03/09/17 Levothyroxine [Synthroid 125 mcg 125 mcg PO DAILY@1000 #30 tab 03/09/17 (*)] [place] Carbonate [[place] 300 mg PO DAILY #30 cap 03/09/17 Carbonate Cap 300 mg (*)] [place] Carbonate [[place] 600 mg PO HS 30 Days cap 03/09/17 Carbonate Cap 300 mg (*)] Naltrexone HCl [Revia] 50 mg PO HS #30 tab 03/09/17 Propranolol HCl [Inderal 10mg (*)] 10 mg PO BID #60 tab 03/09/17 Thiothixene [Navane 5 mg (*)] 5 mg PO BID #60 cap 03/09/17 Medical Decision Making - Diagnostics Imaging Results: Imaging Impressions Chest X-Ray 04/21/18 16:04 Impression: 1. No active cardiopulmonary disease seen. Chest/Thorax CTA 04/21/18 17:39 Impression: 1. No evidence of pulmonary embolus using CT protocol. 2. No significant abnormality within the chest. 3. Mild hepatic steatosis. Findings discussed with Emilia Kate M.D. at 18:11 hour, 04/21/2018. ED Course/Re-evaluation: In the emergency department I discussed possible etiologies with the patient. I answered all his questions. IV was placed. Laboratory studies, EKG and chest x-ray were ordered. Patient's troponin was negative. CBC and chemistry unremarkable. BNP and D- dimer are pending. Chest x-ray: No acute disease noted. Please refer the dictated report. D-dimer was elevated. Because of this CT angiogram was ordered. CT angiogram: Please refer the dictated report. No acute disease noted. I discussed the results with the patient. I answered all his questions. He was given warnings. He was given follow-up with primary care physician. Differential Diagnosis: My differential includes but is not limited to CHF, pneumonia, bronchitis, pulmonary embolus, ACS, acute [place], electrolyte abnormality, sugar abnormality - Data Points Laboratory Results: Laboratory Results 04/21/18 16:00 04/21/18 16:00 04/21/18 04/21/18 04/21/18 16:00 16:00 16:00 WBC RBC Hgb Hct MCV MCH MCHC RDW Plt Count MPV Neut % (Auto) Lymph % (Auto) Wise % (Auto) Eos % (Auto) Baso % (Auto) Nucleat RBC Rel Count Absolute Neuts (auto) Absolute Lymphs (auto) Absolute Monos (auto) Absolute Eos (auto) Absolute Basos (auto) Absolute Nucleated RBC Immature Gran % Immature Gran # D-Dimer 1.18 ug/mLFEU H ug/mLFEU (0.00-0.50) Sodium 139 mEq/L mEq/L (135-145) Potassium 4.3 mEq/L mEq/L (3.5-5.2) Chloride 108 mEq/L mEq/L (97-110) Carbon Dioxide 26 mEq/l mEq/l (22-31) Anion Gap 5 mEq/L L mEq/L (6-14) BUN 17 mg/dL mg/dL (7-23) Creatinine 1.3 mg/dL mg/dL (0.7-1.3) Estimated GFR 56 Glucose 110 mg/dL H mg/dL (70-100) Calcium 10.5 mg/dL H mg/dL (8.5-10.4) POC Troponin I NT-Pro-B Natriuret Pep 32 pg/mL pg/mL (0-125) 04/21/18 04/21/18 16:00 15:59 WBC 6.81 10^3/uL 10^3/uL (3.80-9.50) RBC 4.88 10^6/uL 10^6/uL (4.40-6.38) Hgb 14.3 g/dL g/dL (13.7-17.5) Hct 43.4 % % (40.0-51.0) MCV 88.9 fL fL (81.5-99.8) MCH 29.3 pg pg (27.9-34.1) MCHC 32.9 g/dL g/dL (32.4-36.7) RDW 13.4 % % (11.5-15.2) Plt Count 156 10^3/uL 10^3/uL (150-400) MPV 11.0 fL fL (8.7-11.7) Neut % (Auto) 63.6 % % (39.3-74.2) Lymph % (Auto) 21.6 % % (15.0-45.0) Wise % (Auto) 9.1 % % (4.5-13.0) Eos % (Auto) 4.1 % % (0.6-7.6) Baso % (Auto) 1.2 % % (0.3-1.7) Nucleat RBC Rel Count 0.0 % % (0.0-0.2) Absolute Neuts (auto) 4.33 10^3/uL 10^3/uL (1.70-6.50) Absolute Lymphs (auto) 1.47 10^3/uL 10^3/uL (1.00-3.00) Absolute Monos (auto) 0.62 10^3/uL 10^3/uL (0.30-0.80) Absolute Eos (auto) 0.28 10^3/uL 10^3/uL (0.03-0.40) Absolute Basos (auto) 0.08 10^3/uL 10^3/uL (0.02-0.10) Absolute Nucleated RBC 0.00 10^3/uL 10^3/uL (0-0.01) Immature Gran % 0.4 % % (0.0-1.1) Immature Gran # 0.03 10^3/uL 10^3/uL (0.00-0.10) D-Dimer Sodium Potassium Chloride Carbon Dioxide Anion Gap BUN Creatinine Estimated GFR Glucose Calcium POC Troponin I 0.02 ng/mL ng/mL (0.00-0.08) NT-Pro-B Natriuret Pep Point of Care Test Results: Chemistry 04/21/18 15:59 POC Troponin I 0.02 ng/mL ng/mL (0.00-0.08) Departure - Departure Disposition: Home, Routine, Self-Care Clinical Impression: Shortness of breath Dyspnea Qualifiers: Dyspnea type: unspecified Qualified Code(s): R06.00 - Dyspnea, unspecified Condition: Good Instructions: Dyspnea (ED) Additional Instructions: Return with increasing shortness of breath, fever, chills or any other concerns. You need close follow-up with your primary care physician for further evaluation. Referrals: Joyce aMthew MD [Primary Care Provider] - 2-3 days, call for appt.
[2018-04-21] MEDS ORDERED: IOPAMIDOL (ISOVUE 370) 100 ML BTL IV ONE (17:43)
[2018-04-21 17:50] VITALS: BP 127/82
--- NOTE | 2018-04-21 22:40 | CPEKG ---
Test Reason : OPEN Blood Pressure : / mmHG Vent. Rate : 056 BPM Atrial Rate : 056 BPM P-R Int : 222 ms QRS Dur : 172 ms QT Int : 476 ms P-R-T Axes : 011 018 021 degrees QTc Int : 460 ms Sinus rhythm Prolonged MD interval Right bundle branch block Anteroseptal infarct, age indeterminate Lateral leads are also involved Confirmed by Emilia Kate ([id number]) on 04/21/2018 10:39:48 PM Referred By: Confirmed By:Emilia Kate
== END 2018-04-21 18:25 | disposition home or self-care (01) ==
DX: R06.00 Dyspnea, unspecified (principal)
CPT/HCPCS: 71046; 71275; 93005; 99285; Q9967; 84484-ER

== ENCOUNTER → 2018-07-15 | Outpatient (CLI) | payer OTHER, MEDICAID | LOC: FIMAGING 09:18 | PROVIDERS: ATTEND Internal Medicine Critical Care Medicine | DX: R06.02 Shortness of breath (principal); G47.33 Obstructive sleep apnea (adult) (pediatric); R91.8 Other nonspecific abnormal finding of lung field ==